=== PATIENT | female | born 2000 | race Caucasian/White ===

== ENCOUNTER → 2018-07-24 | Outpatient (CLI) | payer OTHER ==
--- NOTE | 2018-07-24 10:31 | US ---
EXAMINATION TYPE: Transabdominal DATE OF EXAM: 12/09/17 COMPARISON: NONE CLINICAL HISTORY: Z36 Confirm Dates. G2, P1 positive beta-hCG test. EXAM PERFORMED: Transabdominal (TA) EXAM MEASUREMENTS: GESTATIONAL AGE / DATING Physician Established: Not yet established Dates by LMP: (8 weeks/6 days) EDC: 02/27/2019 Dates by First Scan: No previous this is first scan Dates by Current Scan for: ( 8 weeks/3 days) EDC: 03/02/2019 MATERNAL ANATOMY Uterus: 11.4 x 7.4 x 6.2cm Right Ovary: not seen Left Ovary: 2.8 x 2.3 x 2.1cm Post CDS / Adnexa: wnl Presence of free fluid: no Presence of corpus luteal cyst: not seen Presence of subchorionic bleed: no GESTATION / SURVEY CRL: 1.9 (8. weeks/3 days) Yolk Sac (normal less than 6mm): 3.3mm Heart Rate: 174 bpm Rhythm: Normal IUP: single Date of LMP: 05/23/2018 Beta HcG (if available): NA Single, live IUP, 8 weeks/3 days, EDC: 03/02/2019, [id number]. Single live intrauterine gestation is confirmed as gestational sac, yolk sac, and pole are iden tified. No free fluid is seen in pelvic cul-de-sac. Left ovary is seen. Right ovary is not clearly identified. No suspicious extraovarian adnexal masses are present. IMPRESSION: Single live intrauterine gestation is confirmed, mean crown-rump length is 1.9 cm corresponding to 8 week 3 day old fetus.
[2018-07-24 11:10] LABS: HCT 40.7 % (34.0-46.0); HGB 13.8 gm/dL (11.4-16.0); MCH 29.2 pg (25.0-35.0); MCHC 33.8 g/dL (31.0-37.0); MCV 86.4 fL (80.0-100.0); Mean Platelet Volume 7.3; Platelet Count 298 k/uL (150-450); RBC 4.71 m/uL (3.80-5.40); RDW 13.4 % (11.5-15.5); WBC 11.5 k/uL (4.0-11.0)
[2018-07-24 11:22] LABS: Glucose 77 mg/dL (74-99)
[2018-07-24 17:29] LABS: HIV 1 AB Non-Reactive (Non-Reactive); HIV AB P24 Non-Reactive (Non-Reactive); HIV P24 AG Non-Reactive (Non-Reactive)
== END | disposition home or self-care (01) ==
LOC: RADUSWWP 09:54
PROVIDERS: ATTEND Obstetrics & Gynecology
DX: Z34.81 Encounter for supervision of other normal pregnancy, first trimester (principal); Z3A.08 8 weeks gestation of pregnancy
CPT/HCPCS: 36415; 76801; 82565; 82947; 85027; 86762; 86780; 86850; 86900; 86901; 87340; 87390

== ENCOUNTER 2018-08-26 08:24 | Emergency (ER) | payer OTHER ==
--- NOTE | 2018-08-26 08:54 | ED ---
General Adult HPI - General Chief complaint: Vaginal Bleeding Stated complaint: discharge & back pain/13 wks preg Time Seen by Provider: 08/26/18 08:36 Source: patient, RN notes reviewed Mode of arrival: ambulatory Limitations: no limitations - History of Present Illness Initial comments: Patient's a G2, P1, 18-year-old female presenting to the emergency room approximately 13 weeks by ultrasound, with a chief complaint of seeing some small amount of brown when she wiped after urinating this morning. Patient states that she was concerned that she's not had any bleeding or spotting in or in previous . Patient denies any abdominal discomfort or pain. Patient denies any other complaints or symptoms. Patient denies any recent fever, chills, shortness of breath, chest pain, back pain, nausea or vomiting, numbness or tingling, headaches or visual changes, or any other complaints. - Related Data Previous Rx's Medication Instructions Recorded Nitrofurantoin Monohyd/M-Cryst 100 mg PO Q12HR #14 cap 08/26/18 [Macrobid] Allergies Allergy/AdvReac Type Severity Reaction Status Date / Time cinnamon Allergy Anaphylaxis Verified 08/26/18 09:29 Review of Systems ROS Statement: Those systems with pertinent positive or pertinent negative responses have been documented in the HPI. ROS Other: All systems not noted in ROS Statement are negative. Past Medical History Past Medical History: No Reported History Additional Past Medical History / Comment(s): 07/27/16 patient has had periods of high heart rate for the last 3 months that comes and goes. History of Any Multi-Drug Resistant Organisms: None Reported Past Surgical History: No Surgical Hx Reported Additional Past Surgical History / Comment(s): Plastic surgery repair to upper lip after dog bite Past Anesthesia/Blood Transfusion Reactions: No Reported Reaction Past Psychological History: ADD/ADHD Smoking Status: Former smoker Past Alcohol Use History: None Reported Past Drug Use History: None Reported - Past Family History Father Additional Family Medical History / Comment(s): Heart disease of unknown origin. at 42 years old General Exam - General Exam Comments Initial Comments: General: The patient is awake and alert, in no distress, and does not appear acutely ill. Neck: The neck is supple. Cardiovascular: There is a regular rate and rhythm. No murmur, rub or gallop is appreciated. Respiratory: Lungs are clear to auscultation, respirations are non-labored, breath sounds are equal. No wheezes, stridor, rales, or rhonchi. Gastrointestinal: Abdomen soft nontender. Musculoskeletal: Normal ROM, no tenderness. Neurological: A&O x 3. CN II-XII intact, There are no obvious motor or sensory deficits. Coordination appears grossly intact. Speech is normal. Skin: Skin is warm and dry and no rashes or lesions are noted. Psychiatric: Cooperative, appropriate mood & affect, normal judgment. Limitations: no limitations Course Vital Signs 08/26/18 08:31 Temperature 98.1 F Pulse Rate 90 Respiratory 16 Rate Blood Pressure 107/74 O2 Sat by Pulse 99 Oximetry Medical Decision Making - Medical Decision Making Patient reexamined at this time shows no signs of distress. She is resting, appears ultrasound shows single IUP measuring 14 weeks. No tendon, palpitations. Patient's labs been reviewed are unremarkable. Urinalysis does show evidence for infection. Patient's vitals are stable. No fever. Will be discharged home started on antibiotics. She is advised on the CERTIFIED CODER over the next 2 days. Advised return for any fever, increase or worsening symptoms. - Lab Data Result diagrams: 08/26/18 09:10 08/26/18 09:10 Lab Results 08/26/18 08/26/18 08/26/18 Range/Units 09:10 09:10 09:10 WBC 11.2 H (4.0-11.0) k/uL RBC 4.41 (3.80-5.40) m/uL Hgb 13.1 (11.4-16.0) gm/dL Hct 37.6 (34.0-46.0) % MCV 85.3 (80.0-100.0) fL MCH 29.6 (25.0-35.0) pg MCHC 34.7 (31.0-37.0) g/dL RDW 13.4 (11.5-15.5) % Plt Count 266 (150-450) k/uL Neutrophils % 67 % Lymphocytes % 27 % Monocytes % 4 % Eosinophils % 1 % Basophils % 0 % Neutrophils # 7.5 (1.3-7.7) k/uL Lymphocytes # 3.0 (1.0-4.8) k/uL Monocytes # 0.4 (0-1.0) k/uL Eosinophils # 0.1 (0-0.7) k/uL Basophils # 0.0 (0-0.2) k/uL Sodium 139 (137-145) mmol/L Potassium 4.1 (3.5-5.1) mmol/L Chloride 110 H (98-107) mmol/L Carbon Dioxide 21 L (22-30) mmol/L Anion Gap 8 mmol/L BUN 6 L (7-17) mg/dL Creatinine 0.41 L (0.52-1.04) mg/dL Est GFR (CKD-EPI)AfAm >90 (>60 ml/min/1.73 sqM) Est GFR (CKD-EPI)NonAf >90 (>60 ml/min/1.73 sqM) Glucose 77 (74-99) mg/dL Calcium 9.4 (8.4-10.2) mg/dL Total Bilirubin 0.3 (0.2-1.3) mg/dL AST 18 (14-36) U/L ALT 25 (9-52) U/L Alkaline Phosphatase 58 (38-126) U/L Total Protein 6.9 (6.3-8.2) g/dL Albumin 3.7 (3.5-5.0) g/dL Urine Color Urine Appearance (Clear) Urine pH (5.0-8.0) Ur Specific Wise (1.001-1.035) Urine Protein (Negative) Urine Glucose (UA) (Negative) Urine Ketones (Negative) Urine Blood (Negative) Urine Nitrite (Negative) Urine Bilirubin (Negative) Urine Urobilinogen (<2.0) mg/dL Ur Leukocyte Esterase (Negative) Urine RBC (0-5) /hpf Urine WBC (0-5) /hpf Urine WBC Clumps (None) /hpf Ur Squamous Epith Cells (0-4) /hpf Amorphous Sediment (None) /hpf Urine Bacteria (None) /hpf Urine Mucus (None) /hpf Blood Type AB Positive Blood Type Recheck No 08/26/18 Range/Units 09:10 WBC (4.0-11.0) k/uL RBC (3.80-5.40) m/uL Hgb (11.4-16.0) gm/dL Hct (34.0-46.0) % MCV (80.0-100.0) fL MCH (25.0-35.0) pg MCHC (31.0-37.0) g/dL RDW (11.5-15.5) % Plt Count (150-450) k/uL Neutrophils % % Lymphocytes % % Monocytes % % Eosinophils % % Basophils % % Neutrophils # (1.3-7.7) k/uL Lymphocytes # (1.0-4.8) k/uL Monocytes # (0-1.0) k/uL Eosinophils # (0-0.7) k/uL Basophils # (0-0.2) k/uL Sodium (137-145) mmol/L Potassium (3.5-5.1) mmol/L Chloride (98-107) mmol/L Carbon Dioxide (22-30) mmol/L Anion Gap mmol/L BUN (7-17) mg/dL Creatinine (0.52-1.04) mg/dL Est GFR (CKD-EPI)AfAm (>60 ml/min/1.73 sqM) Est GFR (CKD-EPI)NonAf (>60 ml/min/1.73 sqM) Glucose (74-99) mg/dL Calcium (8.4-10.2) mg/dL Total Bilirubin (0.2-1.3) mg/dL AST (14-36) U/L ALT (9-52) U/L Alkaline Phosphatase (38-126) U/L Total Protein (6.3-8.2) g/dL Albumin (3.5-5.0) g/dL Urine Color Yellow Urine Appearance Cloudy H (Clear) Urine pH 6.5 (5.0-8.0) Ur Specific Wise 1.016 (1.001-1.035) Urine Protein Trace H (Negative) Urine Glucose (UA) Negative (Negative) Urine Ketones Trace H (Negative) Urine Blood Moderate H (Negative) Urine Nitrite Negative (Negative) Urine Bilirubin Negative (Negative) Urine Urobilinogen <2.0 (<2.0) mg/dL Ur Leukocyte Esterase Large H (Negative) Urine RBC 16 H (0-5) /hpf Urine WBC 55 H (0-5) /hpf Urine WBC Clumps Few H (None) /hpf Ur Squamous Epith Cells 23 H (0-4) /hpf Amorphous Sediment Occasional H (None) /hpf Urine Bacteria Occasional H (None) /hpf Urine Mucus Rare H (None) /hpf Blood Type Blood Type Recheck Disposition Clinical Impression: UTI (urinary tract infection), Disposition: HOME SELF-CARE Condition: Good Instructions: Urinary Tract Infection in Women (ED) Additional Instructions: Please use medication as discussed. Please follow-up with CERTIFIED CODER/family doctor in the next 2 days. Please return to emergency room if the symptoms increase or worsen or for any other concerns. Prescriptions: Nitrofurantoin Monohyd/M-Cryst [Macrobid] 100 mg PO Q12HR #14 cap Is patient prescribed a controlled substance at d/c from ED?: No Referrals: None,Stated [Primary Care Provider] - 1-2 days Time of Disposition: 10:39
[2018-08-26 09:31] LABS: Basophils % (A) 0 %; Eosinophils # (A) 0.1 k/uL (0-0.7); Eosinophils % (A) 1 %; HCT 37.6 % (34.0-46.0); HGB 13.1 gm/dL (11.4-16.0); Lymphocytes % (A) 27 %; MCH 29.6 pg (25.0-35.0); MCHC 34.7 g/dL (31.0-37.0); MCV 85.3 fL (80.0-100.0); Mean Platelet Volume 7.7; Monocytes # (A) 0.4 k/uL (0-1.0); Monocytes % (A) 4 %; Neutrophils # (A) 7.5 k/uL (1.3-7.7); Neutrophils % (A) 67 %; Platelet Count 266 k/uL (150-450); RBC 4.41 m/uL (3.80-5.40); RDW 13.4 % (11.5-15.5); WBC 11.2 k/uL (4.0-11.0)
[2018-08-26 09:38] LABS: ALT 25 U/L (9-52); AST 18 U/L (14-36); Albumin 3.7 g/dL (3.5-5.0); Alkaline Phosphatase 58 U/L (38-126); Anion Gap 8 mmol/L; Blood Urea Nitrogen 6 mg/dL (7-17); Calcium 9.4 mg/dL (8.4-10.2); Carbon Dioxide 21 mmol/L (22-30); Chloride 110 mmol/L (98-107); Glucose 77 mg/dL (74-99); Potassium 4.1 mmol/L (3.5-5.1); Sodium 139 mmol/L (137-145); Total Bilirubin 0.3 mg/dL (0.2-1.3); Total Protein 6.9 g/dL (6.3-8.2)
[2018-08-26 09:44] LABS: Amorphous Sediment,Urine Occasional /hpf; Appearance,Urine Cloudy (Clear); Bacteria,Urine Occasional /hpf; Bilirubin,Urine Negative (Negative); Blood,Urine Moderate (Negative); Color,Urine Yellow; Glucose,Urine (UA) Negative (Negative); Ketones,Urine Trace (Negative); Leukocyte Esterase,Urine Large (Negative); Mucus,Urine Rare /hpf; Nitrite,Urine Negative (Negative); PH, Urine 6.5 (5.0-8.0); Protein,Urine Trace (Negative); RBC,Urine 16 /hpf (0-5); Specific Gravity,Urine 1.016 (1.001-1.035); Squamous Epithelial Cell,Urine 23 /hpf (0-4); Urobilinogen,Urine <2.0 mg/dL (<2.0)
--- NOTE | 2018-08-26 10:25 | US ---
EXAMINATION TYPE: Transabdominal DATE OF EXAM: 12/09/17 COMPARISON: Us 07/24/2018 CLINICAL HISTORY: Pain. Spotting EXAM PERFORMED: Transabdominal (TA) EXAM MEASUREMENTS: GESTATIONAL AGE / DATING Physician Established: (13 weeks/4 days) EDC: 02/27/2019 Dates by LMP: (13 weeks/4 days) EDC: 02/27/2019 Dates by First Scan: (13 weeks/1 days) EDC: 03/02/2019 Dates by Current Scan for: (14 weeks/0 days) EDC: 02/24/2019 MATERNAL ANATOMY Uterus: 15.0 x 5.8 x 9.8 cm Right Ovary: 2.1 x 1.6 x 2.0 cm Left Ovary: 2.6 x 1.8 x 1.9 cm Post CDS / Adnexa: wnl Presence of free fluid: No Presence of corpus luteal cyst: No Presence of subchorionic bleed: No GESTATION / SURVEY CRL: 8.0 cm (14 weeks/0 days) Heart Rate: 160 bpm Rhythm: Normal IUP: Viable IUP Date of LMP: 05/23/2018 Beta HcG (if available): Not available at this time Single live intrauterine gestation is redemonstrated. Satisfactory interval progression noted. No cory e fluid seen in pelvic cul-de-sac. Both ovaries are seen. No suspicious extraovarian adnexal masses are noted. IMPRESSION: Single live intrauterine gestation is redemonstrated, mean crown-rump length is 8.0 cm corresponding to 14 weeks 0 day old fetus. No ultrasound evidence for complication.
[2018-08-26 10:52] LABS: HCG,Quantitative Serum 96028.9 mIU/mL
[2018-08-26 11:10] VITALS: BP 117/70; PULSE 86; RESP 17; TEMP 98.4
== END 2018-08-26 11:11 | disposition home or self-care (01) ==
LOC: EC 08:24
DX: O23.41 Unspecified infection of urinary tract in pregnancy, first trimester (principal); Z3A.14 14 weeks gestation of pregnancy; Z87.891 Personal history of nicotine dependence; Z91.018 Allergy to other foods
CPT/HCPCS: 36415; 76801; 80053; 81001; 84702; 85025; 86900; 86901; 87086; 99284

== ENCOUNTER → 2018-11-10 | Outpatient (CLI) | payer OTHER | LOC: LABWHC1 08:35 | PROVIDERS: ATTEND Obstetrics & Gynecology | DX: Z34.82 Encounter for supervision of other normal pregnancy, second trimester (principal); Z3A.00 Weeks of gestation of pregnancy not specified | CPT/HCPCS: 36415; 82950 ==

== ENCOUNTER 2018-12-20 14:23 | Outpatient (CLI) | payer OTHER ==
[2018-12-20 15:09] VITALS: BP 124/65; PULSE 108; RESP 16; TEMP 98.8
--- NOTE | 2018-12-21 06:17 | P.MSEPDOC ---
Presenting Problems - Arrival Data Date of Arrival on Unit: 12/20/18 Time of Arrival on Unit: 14:38 Mode of Transport: Ambulatory - Complaint OB-Reason for Admission/Chief Complaint: Other Comment: pt arrived c/o pressure and discomfort in the vaginal area Medical History - Information : 2 Para: 1 Term: 1 : 0 Abortions: Spontaneous or Elective: 0 Number of Living Children: 1 - Gestational Age Gestational Age by YVONNE (wks/days): 30 Weeks and 1 Days Review of Systems - Review of Systems Constitutional: No problems Breast: No problems ENT: No problems Cardiovascular: No problems Respiratory: No problems Gastrointestinal: No problems Genitourinary: No problems Musculoskeletal: No problems Neurological: No problems Skin: No problems Vital Signs - Temperature Temperature: 98.8 F Temperature Source: Oral - Pulse Right Brachial Pulse Rate: 108 Pulse Assessment Method: Automatic Cuff - Respirations Respiratory Rate: 16 Oxygen Delivery Method: Room Air O2 Sat by Pulse Oximetry: 97 - Blood Pressure Right Arm Blood Pressure: 124/65 Blood Pressure Mean: 84 Blood Pressure Source: Automatic Cuff Medical Screen Scoring (Post) - Cervical Exam Dilation: 0 cm = 0 Effacement: Exam Deferred Membranes: Intact - Uterine Contractions Frequency: N/A Duration: N/A Intensity: N/A - Maternal Vital Signs Maternal Temperature: N/A Maternal Blood Pressure: N/A Signs of Preeclampsia: N/A Maternal Respirations: N/A - Pain Assessment Pain Location and Character: Perineal Pain Scale Used: Numeric (1 - 10) Pain Intensity: 7 Pain Management Goal: 2 Pain Description: Pressure Pain Radiation Location: n/a Pain Frequency: Constant Pain Behavior: Vocalization Pain Aggravating Factors: Position, Walking Non-Pharmacological Interventions: Position/Reposition - Maternal Trauma Maternal Trauma: N/A - Assessment Heart Rate: 140 Heart Rate - NICHD Category: Category I (Normal) = 0 NST: Reactive Position: N/A Station: N/A - Total Score Total Score (Post): 0 - Post Treatment Level of Risk Post Treatment Level of Risk: Low (0-5) Physician Notification (Post) - Physician Notified Physician Notified Date: 12/20/18 Physician Notified Time: 14:04 Spoke With: dr pizarro New Order Received: Yes - Notification Comment Comment: may discharge to home Disposition - Disposition OB Disposition: Discharge to home Discharge Date: 12/20/18 Discharge Time: 16:05 I agree with the RN Medical Screening Exam: Yes Risk & Benefit of care provided described in d/c instruction: Yes Diagnosis: PELVIC AND PERINEAL PAIN
== END 2018-12-20 16:15 | disposition home or self-care (01) ==
LOC: FBPOP 14:23
PROVIDERS: ATTEND Obstetrics & Gynecology
DX: O99.89 Other specified diseases and conditions complicating pregnancy, childbirth and the puerperium (principal); R10.2 Pelvic and perineal pain; Z3A.30 30 weeks gestation of pregnancy
CPT/HCPCS: 59025; G0463; 99213

== ENCOUNTER → 2019-01-29 | Outpatient (CLI) | payer OTHER ==
[2019-01-29 01:27] VITALS: BP 133/64; PULSE 94; RESP 16; TEMP 96.8
--- NOTE | 2019-02-04 08:27 | P.MSEPDOC ---
Presenting Problems - Arrival Data Date of Arrival on Unit: 01/29/19 Time of Arrival on Unit: 00:15 Mode of Transport: Wheelchair - Complaint OB-Reason for Admission/Chief Complaint: Possible Onset of Labor Comment: contractions for 2 hours Medical History - Information : 2 Para: 1 Term: 1 : 0 Abortions: Spontaneous or Elective: 0 Number of Living Children: 1 - Gestational Age Gestational Age by YVONNE (wks/days): 35 Weeks and 6 Days Review of Systems - Review of Systems Constitutional: No problems Breast: No problems ENT: No problems Cardiovascular: No problems Respiratory: No problems Gastrointestinal: No problems Genitourinary: No problems Musculoskeletal: No problems Neurological: No problems Skin: No problems Vital Signs - Temperature Temperature: 96.8 F Temperature Source: Oral - Pulse Right Brachial Pulse Rate: 94 Pulse Assessment Method: Automatic Cuff - Respirations Respiratory Rate: 16 Oxygen Delivery Method: Room Air O2 Sat by Pulse Oximetry: 98 - Blood Pressure Right Arm Blood Pressure: 133/64 Blood Pressure Mean: 87 Blood Pressure Source: Automatic Cuff Medical Screen Scoring (Pre) - Cervical Exam Dilation: 1-3 cm = 1 Membranes: Intact - Uterine Contractions Frequency: > 5 minutes apart = 1 Duration: N/A Intensity: N/A - Maternal Vital Signs Maternal Temperature: N/A - Assessment Baseline FHR: 135 Heart Rate - NICHD Category: Category I (Normal) = 0 NST: Reactive Position: N/A Station: N/A - Total Score Total Score (Pre): 2 - Level of Risk Level of Risk: Low (0-5) Physician Notification (Pre) - Physician Notified Physician Notified Date: 01/29/19 Physician Notified Time: 00:54 Spoke With: Deric Jones Order Received: Yes (january discharge to home) Medical Screen Scoring (Post) - Post Treatment Level of Risk Post Treatment Level of Risk: Low (0-5) Physician Notification (Post) - Notification Comment Comment: Discharge to home with instruction Disposition - Disposition OB Disposition: Discharge to home, Written follow up instructions reviewed Discharge Date: 01/29/19 Discharge Time: 01:00 I agree with the RN Medical Screening Exam: Yes Risk & Benefit of care provided described in d/c instruction: Yes Diagnosis: FALSE LABOR BEFORE 37 COMPLETED WEEKS OF GEST, THIRD TRI
== END ==
LOC: FBPOP 00:18
PROVIDERS: ATTEND Obstetrics & Gynecology
DX: O47.03 False labor before 37 completed weeks of gestation, third trimester (principal); Z3A.35 35 weeks gestation of pregnancy
CPT/HCPCS: 59025; G0463; 99213

== ENCOUNTER 2019-02-22 06:07 | Inpatient (IN) | payer OTHER ==
--- NOTE | 2019-02-21 20:46 | P.HPOB ---
History of Present Illness H&P Date: 02/21/19 Chief Complaint: Induction of labor This is a 18-year-old female 2 para 1 with an estimated date of confinement of 02/27/2019, estimated gestational age of 39-2/7 weeks, who presents to labor and delivery for induction of labor. She admits to good movement. She has been experiencing irregular but strong contractions. She also complains of pelvic pressure. course has been essentially uncomplicated. labs: GC/chlamydia-negative Hepatitis B surface antigen-nonreactive Rubella-immune Syphilis antibody-negative nonreactive HIV-nonreactive Random glucose-77 Hemoglobin-13.8 Blood type-a B+ Antibody screen-negative Obstetrical ultrasound-normal anatomy One hour Glucola-110 Group B streptococcus-negative Obstetrical history: . History of 1 vaginal delivery at term. Gynecologic history: No history of sexual transmitted diseases. Social history: She is single. She is unemployed. Review of Systems Constitutional: Denies chills, Denies fever Eyes: denies blurred vision, denies pain Ears, nose, mouth and throat: Denies headache, Denies sore throat Cardiovascular: Denies chest pain, Denies shortness of breath Respiratory: Denies cough Gastrointestinal: Reports abdominal pain (Irregular contractions) Genitourinary: Reports pelvic pain, Reports Integumentary: Denies pruritus, Denies rash Neurological: Denies numbness, Denies weakness Psychiatric: Denies anxiety, Denies depression Past Medical History Past Medical History: No Reported History History of Any Multi-Drug Resistant Organisms: None Reported Past Surgical History: No Surgical Hx Reported Additional Past Surgical History / Comment(s): Plastic surgery repair to upper lip after dog bite Past Anesthesia/Blood Transfusion Reactions: No Reported Reaction Past Psychological History: No Psychological Hx Reported Smoking Status: Never smoker Past Alcohol Use History: None Reported Past Drug Use History: None Reported - Past Family History Father Additional Family Medical History / Comment(s): Heart disease of unknown origin. at 42 years old Medications and Allergies Home Medications Medication Instructions Recorded Confirmed Type No Known Home Medications 12/20/18 01/29/19 History Allergies Allergy/AdvReac Type Severity Reaction Status Date / Time cinnamon Allergy Anaphylaxis Verified 01/29/19 00:31 Exam Osteopathic Statement: *. No significant issues noted on an osteopathic structural exam other than those noted in the History and Physical/Consult. HEENT: Within normal limits Heart: Regular rate and rhythm Lungs: Clear to auscultation bilaterally Abdomen: Cervix: 3 cm/60%/-2 station heart tones: 140s by Doppler Extremities: Negative Homans Assessment and Plan (1) with 39 completed weeks gestation Status: Acute Code(s): Z3A.39 - 39 WEEKS GESTATION OF SNOMED Code(s): 54782453 Plan: Proceed with oxytocin induction of labor. Expectant management. Epidural anesthesia if desired.
[2019-02-22] MEDS ORDERED: CARBOPROST TROMETHAMINE 250 MCG/ML 1 ML AMP IM PRN (06:33)
[2019-02-22] MEDS ORDERED: METHYLERGONOVINE 0.2 MG/ML 1 ML AMP IM PRN (06:33)
[2019-02-22] MEDS ORDERED: LIDOCAINE 1% 20 ML VIAL (10MG/ML) FOR IV START INTRADERMA PRN (06:33)
[2019-02-22] MEDS ORDERED: OXYTOCIN 10 UNIT/ML 1 ML VIAL IM PRN (06:33)
[2019-02-22] MEDS ORDERED: OXYTOCIN 30 UNITS/500 ML NS 30 UNIT in SALINE 1 500ML.BAG IV SCH (06:33)
[2019-02-22] MEDS ORDERED: TERBUTALINE 1 MG/ML VIAL SQ PRN (06:33)
[2019-02-22] MEDS ORDERED: LIDOCAINE 0.5% (PF) 5 MG/ML (50 ML SDV) SQ PRN (06:33)
[2019-02-22 07:24] LABS: Basophils % (A) 0 %; Eosinophils % (A) 0 %; HCT 30.8 % (34.0-46.0); HGB 9.9 gm/dL (11.4-16.0); Lymphocytes # (A) 2.3 k/uL (1.0-4.8); Lymphocytes % (A) 24 %; MCH 26.5 pg (25.0-35.0); MCHC 32.1 g/dL (31.0-37.0); MCV 82.6 fL (80.0-100.0); Mean Platelet Volume 8.3; Monocytes # (A) 0.4 k/uL (0-1.0); Monocytes % (A) 5 %; Neutrophils # (A) 6.7 k/uL (1.3-7.7); Neutrophils % (A) 69 %; Platelet Count 255 k/uL (150-450); RBC 3.73 m/uL (3.80-5.40); RDW 14.7 % (11.5-15.5); WBC 9.7 k/uL (4.0-11.0)
[2019-02-22 07:37] VITALS: BMI 43.5
[2019-02-22] MEDS: LACTATED RINGERS 1,000 ML IV SCH ×3 (07:42→13:10)
[2019-02-22] MEDS ORDERED: BUTORPHANOL 1 MG/ML 1 ML VIAL IV PRN (07:43)
[2019-02-22] MEDS ORDERED: ROPIVACAINE 100 MG, fentaNYL (PF) 200 MCG in SODIUM CHLORIDE 0.9% 76 ML EPIDURAL ONE (13:02)
--- NOTE | 2019-02-22 19:13 | P.PROBDLV ---
Vaginal Delivery Note - . Vaginal Delivery Note: The patient progressed to complete dilation after oxytocin induction of labor and artificial rupture membranes with clear fluid noted. She did receive epidural anesthesia. Once reaching complete dilation, she began pushing. Infant's head came to a crown. With one further push, the infant's head delivered across the perineum followed by the anterior shoulder and the remainder the body. was placed on mother's abdomen. Brisk cry was noted immediately. Cord was clamped and cut. was taken to warmer for evaluation. A viable male infant is noted with scores of 9 at 1 minute and 9 at 5 minutes and weight was 8 lbs. 9 oz. Placenta delivered shortly thereafter, intact, with a three-vessel cord. Uterus contracted fairly well after oxytocin was given and uterine massage was carried out. A few clots were manually expressed and this did help the uterus to firm. Inspection of the perineum revealed a second-degree perineal laceration. This area was anesthetized with 1% lidocaine and then sutured with 3-0 and 2-0 Vicryl suture in the usual multilayer fashion. Both mother and are in stable condition. Estimated blood loss is approximately 200 mL's.
[2019-02-22] MEDS ORDERED: BENZOCAINE/MENTHOL SPRAY 1 GM/SPRAY AEROSOL TOPICAL PRN (19:16)
[2019-02-22] MEDS ORDERED: ZOLPIDEM 5 MG TAB PO PRN (19:16)
[2019-02-22] MEDS ORDERED: diphenhydrAMINE 50 MG/ML 1 ML VIAL IVP PRN ×2 (19:16)
[2019-02-22] MEDS ORDERED: LANOLIN CREAM 5 GM TUBE TOPICAL PRN (19:16)
[2019-02-22] MEDS ORDERED: ACETAMINOPHEN TAB 325 MG TAB PO PRN (19:16)
[2019-02-22] MEDS ORDERED: SIMETHICONE 80 MG CHEWABLE PO PRN (19:16)
[2019-02-22] MEDS ORDERED: HYDROCORTISONE 2.5% RECTAL CREAM 30 GM TUBE RECTAL PRN (19:16)
[2019-02-22] MEDS ORDERED: diphenhydrAMINE 25 MG CAP PO PRN (19:16)
[2019-02-22] MEDS ORDERED: diphenhydrAMINE 50 MG CAP PO PRN (19:16)
[2019-02-22] MEDS ORDERED: WITCH HAZEL 1 EACH MED..PAD TOPICAL PRN (19:16)
[2019-02-22] MEDS ORDERED: OXYTOCIN 20 UNITS/1000 ML NS 1,000 ML IV SCH (19:30)
[2019-02-22] MEDS: IBUPROFEN 600 MG TAB PO PRN (19:31)
[2019-02-22] MEDS: SENNOSIDES-DOCUSATE SODIUM 1 EACH TAB PO SCH (21:03)
[2019-02-22] MEDS: HYDROcodone/APAP 5-325MG 1 EACH TAB PO PRN (21:18)
[2019-02-23] MEDS: HYDROcodone/APAP 5-325MG 1 EACH TAB PO PRN (07:25)
--- NOTE | 2019-02-23 08:27 | P.DS ---
Providers Date of admission: 02/22/19 06:07 Expected date of discharge: 02/23/19 Attending physician: Hui Rivera Primary care physician: Stated None - Discharge Diagnosis(es) (1) with 39 completed weeks gestation Current Visit: No Status: Acute Hospital Course: This is a 18-year-old female 2 para 1 at 39-2/7 weeks who presented for induction of labor. She underwent oxytocin induction of labor and delivered vaginally a viable male infant with scores of 9 at 1 minute and 9 at 5 minutes and weight of 8 lbs. 9 oz. Her course has been essentially uncomplicated. Lochia is decreasing. Pain is fairly well controlled. She is breast-feeding. Vital signs are stable. Abdomen is soft with fundus firm and nontender. Extremity show negative Homans. Impression is status post vaginal delivery day #1. Plan is to discharge home today. Routine instructions are given. She will be given a prescription for ibuprofen and a breast pump. She is advised follow-up in the office in 6 weeks for a check. She is advised to call the office if she has any further questions or concerns prior to her appointment time. Procedures: Oxytocin induction of labor Spontaneous vaginal delivery of a viable male on 02/22/2019 Patient Condition at Discharge: Stable Plan - Discharge Summary New Discharge Prescriptions: New Ibuprofen [Motrin] 600 mg PO Q6HR PRN #60 tab PRN Reason: Mild Pain Or Fever >= 100.5 Discharge Medication List Ibuprofen [Motrin] 600 mg PO Q6HR PRN #60 tab 02/23/19 [Rx] Follow up Appointment(s)/Referral(s): Hui Rivera DO [Doctor of Osteopathic Medicine] - 6 Weeks Activity/Diet/Wound Care/Special Instructions: Instructions 1. Do not begin any exercise program for 3 weeks. 2. Do not resume sexual relations for 3 weeks or longer if uncomfortable. 3. You may take tub baths or showers at any time. 4. You may use tampons if desired after 3 weeks. 5. Keep the area of episiotomy (stitches) clean and dry. 6. If you are not nursing, wear a good fitting, supportive bra during the day and limit fluid intake for at least 1 week to prevent breast engorgement. 7. Call the office, [phone], within the next week to make appointment for your 6 week checkup if it has not already been made. 8. Report any of the following occurrences to the doctor promptly: a. Heavy, excessive bleeding b. Chills, fever c. Burning or frequency of urination d. Pain or redness and breasts if nursing e. Increasing pain or swelling in episiotomy (stitches). In addition to the above instructions, the following additional should be followed: 1. No heavy lifting or straining (exercising) until after 6 week checkup. 2. Keep abdominal incision clean and dry: You may wear a dressing if more comfortable. 3. Make office appointment for 10 days after going home or as instructed by her doctor. Discharge Disposition: HOME SELF-CARE
[2019-02-23 10:30] LABS: Basophils % (A) 0 %; Eosinophils % (A) 0 %; HCT 25.9 % (34.0-46.0); Hypochromasia Moderate; Lymphocytes # (A) 1.9 k/uL (1.0-4.8); Lymphocytes % (A) 13 %; MCH 27.1 pg (25.0-35.0); MCHC 32.6 g/dL (31.0-37.0); MCV 83.3 fL (80.0-100.0); Mean Platelet Volume 8.9; Monocytes # (A) 0.8 k/uL (0-1.0); Monocytes % (A) 5 %; Neutrophils # (A) 11.5 k/uL (1.3-7.7); Neutrophils % (A) 80 %; Platelet Count 221 k/uL (150-450); RBC 3.11 m/uL (3.80-5.40); RDW 15.1 % (11.5-15.5); WBC 14.4 k/uL (4.0-11.0)
[2019-02-23 10:35] LABS: HGB 8.4 gm/dL (11.4-16.0)
[2019-02-23] MEDS: SENNOSIDES-DOCUSATE SODIUM 1 EACH TAB PO SCH ×2 (14:35→20:15)
[2019-02-23] MEDS: IBUPROFEN 600 MG TAB PO PRN (15:57)
[2019-02-23 16:52] VITALS: RESP 16
[2019-02-24 01:42] VITALS: TEMP 97.8
[2019-02-24] MEDS: SENNOSIDES-DOCUSATE SODIUM 1 EACH TAB PO SCH (08:02)
[2019-02-24 08:05] VITALS: BP 111/66; PULSE 82
[2019-02-24] MEDS: IBUPROFEN 600 MG TAB PO PRN (09:54)
== END 2019-02-24 10:30 | disposition home or self-care (01) | DRG 807 ==
LOC: 4FBP 06:07
PROVIDERS: ADMIT Obstetrics & Gynecology; ATTEND Obstetrics & Gynecology
PROC: 10E0XZZ Delivery of Products of Conception, External Approach (ICD-10-PCS; principal; 2019-02-22)
PROC: 0KQM0ZZ Repair Perineum Muscle, Open Approach (ICD-10-PCS; 2019-02-22)
PROC: 10907ZC Drainage of Amniotic Fluid, Therapeutic from Products of Conception, Via Natural or Artificial Opening (ICD-10-PCS; 2019-02-22)
PROC: 3E033VJ Introduction of Other Hormone into Peripheral Vein, Percutaneous Approach (ICD-10-PCS; 2019-02-22)
DX: O70.1 Second degree perineal laceration during delivery (principal); Z37.0 Single live birth; Z3A.39 39 weeks gestation of pregnancy; Z88.8 Allergy status to other drugs, medicaments and biological substances
CPT/HCPCS: 85025; 86850; 86900; 86901

== ENCOUNTER 2019-11-12 06:50 | Emergency (ER) | payer OTHER ==
[2019-11-12] MEDS ORDERED: ACETAMINOPHEN TAB 500 MG TAB PO STA (06:59)
[2019-11-12] MEDS ORDERED: IBUPROFEN 600 MG TAB PO STA (06:59)
--- NOTE | 2019-11-12 07:10 | ED ---
General Adult HPI - General Chief complaint: Upper Respiratory Infection Stated complaint: Cough/Headache Time Seen by Provider: 11/12/19 07:00 Source: patient, RN notes reviewed, old records reviewed Mode of arrival: ambulatory Limitations: no limitations - History of Present Illness Initial comments: Patient is a 19-year-old female who presents emergency room today with cough fever and congestion for the past day. Patient has had a fever 101 today. She has some Tylenol at 1 AM and some Sudafed this morning prior to arrival. She was exposed and influenza by her mother. - Related Data Home Medications Medication Instructions Recorded Confirmed Acetaminophen [Tylenol] 1,000 mg PO Q4-6H PRN 11/12/19 11/12/19 Fluticasone Nasal [place] [Flonase 2 spr EA NOSTRIL DAILY PRN 11/12/19 11/12/19 Nasal [place]] Previous Rx's Medication Instructions Recorded Ibuprofen [Motrin] 600 mg PO Q8HR PRN #30 tab 11/12/19 Oseltamivir [Tamiflu] 75 mg PO Q12HR #10 cap 11/12/19 Allergies Allergy/AdvReac Type Severity Reaction Status Date / Time cinnamon Allergy Anaphylaxis Verified 11/12/19 07:45 Review of Systems ROS Statement: Those systems with pertinent positive or pertinent negative responses have been documented in the HPI. ROS Other: All systems not noted in ROS Statement are negative. Past Medical History Past Medical History: No Reported History History of Any Multi-Drug Resistant Organisms: None Reported Past Surgical History: No Surgical Hx Reported Additional Past Surgical History / Comment(s): Plastic surgery repair to upper lip after dog bite Past Anesthesia/Blood Transfusion Reactions: No Reported Reaction Past Psychological History: No Psychological Hx Reported Smoking Status: Current every day smoker Past Alcohol Use History: None Reported Past Drug Use History: None Reported - Past Family History Father History Unknown: Yes Additional Family Medical History / Comment(s): Heart disease of unknown origin. at 42 years old Mother Family Medical History: Diabetes Mellitus General Exam - General Exam Comments Initial Comments: 19-year-old female. Limitations: no limitations General appearance: alert, in no apparent distress Head exam: Present: atraumatic, normocephalic, normal inspection Eye exam: Present: normal appearance ENT exam: Present: normal exam, mucous membranes moist Neck exam: Present: normal inspection. Absent: tenderness, meningismus, lymphadenopathy Respiratory exam: Present: normal lung sounds bilaterally. Absent: respiratory distress, wheezes, rales, rhonchi, stridor Cardiovascular Exam: Present: regular rate, normal rhythm, normal heart sounds. Absent: systolic murmur, diastolic murmur, rubs, gallop, clicks GI/Abdominal exam: Present: soft, normal bowel sounds. Absent: distended, tenderness, guarding, rebound, rigid Extremities exam: Present: normal inspection, full ROM, normal capillary refill. Absent: tenderness, pedal edema, joint swelling, calf tenderness Back exam: Present: normal inspection Neurological exam: Present: alert, oriented X3, CN II-XII intact Psychiatric exam: Present: normal affect, normal mood Skin exam: Present: warm, dry, intact, normal color. Absent: rash Course Vital Signs 11/12/19 06:57 Temperature 100.6 F H Pulse Rate 110 H Respiratory 22 Rate Blood Pressure 130/83 O2 Sat by Pulse 96 Oximetry Medical Decision Making - Medical Decision Making 19-year-old female presents emergency department today for evaluation for concern for fever cough congestion. Patient is positive for influenza A. Patient's lungs are clear. She is given Motrin Tylenol. She appears in no acute distress. Patient will be discharged at this time with a prescription for Tamiflu. Discussed supportive measures. All questions were answered return parameters were discussed. - Lab Data Lab Results 11/12/19 Range/Units 07:03 Influenza Type A RNA Detected H (Not Detectd) Influenza Type B (PCR) Not Detected (Not Detectd) Disposition Clinical Impression: Influenza Disposition: HOME SELF-CARE Condition: Good Instructions (If sedation given, give patient instructions): Influenza (ED) Additional Instructions: Please use medication as discussed. Alternate between Motrin and Tylenol every 3-4 hours. Encourage fluid intake. Please follow up with family doctor if symptoms have not improved over the next two days. Please return to the emergency room if your symptoms increase or worsen or for any other concerns. Prescriptions: Ibuprofen [Motrin] 600 mg PO Q8HR PRN #30 tab PRN Reason: Pain Oseltamivir [Tamiflu] 75 mg PO Q12HR #10 cap Is patient prescribed a controlled substance at d/c from ED?: No Referrals: None,Stated [Primary Care Provider] - 1-2 days Time of Disposition: 07:48
[2019-11-12 08:06] VITALS: BP 136/76; PULSE 99; RESP 18; TEMP 98.7
== END 2019-11-12 08:06 | disposition home or self-care (01) ==
LOC: EC 06:50
DX: J10.1 Influenza due to other identified influenza virus with other respiratory manifestations (principal); F17.200 Nicotine dependence, unspecified, uncomplicated; Z91.018 Allergy to other foods
CPT/HCPCS: 87502; 99284

== ENCOUNTER → 2020-06-29 | Outpatient (CLI) | payer OTHER ==
--- NOTE | 2020-06-29 15:45 | US ---
EXAMINATION TYPE: US thyroid st tissue head/neck DATE OF EXAM: 06/29/2020 COMPARISON: NONE CLINICAL HISTORY: R22.0 swelling. Edema GLAND SIZE: Right Lobe: 5.7 x 1.5 x 1.6 cm Overall Parenchyma: homogenous Left Lobe: 5.4 x 1.2 x 2.0 cm Overall Parenchyma: homogeneous Isthmus Thickness: .4 cm NODULES RIGHT: # of nodules measured on right: 0 LEFT: # of nodules measured on left: 0 ISTHMUS: # of nodules measured in the isthmus: 0 Bilateral neck scanned, no evidence of lymphadenopathy. Homogeneous thyroid measures upper limits of normal in size without patient's nodule. IMPRESSION: As above. Unremarkable study.
== END | disposition home or self-care (01) ==
LOC: RADUSWWP 14:59
PROVIDERS: ATTEND Internal Medicine
DX: R22.0 Localized swelling, mass and lump, head (principal); R22.1 Localized swelling, mass and lump, neck
CPT/HCPCS: 76536

== ENCOUNTER 2020-08-05 12:25 | Emergency (ER) | payer OTHER ==
[2020-08-05 12:31] VITALS: BP 127/86; PULSE 74; RESP 18; TEMP 98.2
--- NOTE | 2020-08-05 13:46 | ED ---
ENT HPI - General Chief complaint: ENT Stated complaint: Sore Throat Time Seen by Provider: 08/05/20 13:06 Source: patient Mode of arrival: ambulatory Limitations: no limitations - History of Present Illness Initial comments: Patient is a 20-year-old female presenting to the emergency Department with complaints of a sore throat since yesterday. Patient states when she clears her throat she gets a little bit of phlegm production and she noticed there was a tiny bit of blood mixed in there. Patient states this happened 2-3 times this morning and she got concerned and side, into the ER. She denies having a fever, chills no cough or shortness of breath. She admits to some mild sinus congestion, postnasal drip. She denies any abdominal pain, no nausea or vomiting. She denies history of asthma. She has no further complaints at this time. Upon arrival to the ER, her vital signs are stable. - Related Data Home Medications Medication Instructions Recorded Confirmed Acetaminophen [Tylenol] 1,000 mg PO Q4-6H PRN 11/12/19 11/12/19 Fluticasone Nasal [place] [Flonase 2 spr EA NOSTRIL DAILY PRN 11/12/19 11/12/19 Nasal [place]] Previous Rx's Medication Instructions Recorded Ibuprofen [Motrin] 600 mg PO Q8HR PRN #30 tab 11/12/19 Oseltamivir [Tamiflu] 75 mg PO Q12HR #10 cap 11/12/19 Allergies Allergy/AdvReac Type Severity Reaction Status Date / Time cinnamon Allergy Anaphylaxis Verified 08/05/20 12:27 Review of Systems ROS Statement: Those systems with pertinent positive or pertinent negative responses have been documented in the HPI. ROS Other: All systems not noted in ROS Statement are negative. Past Medical History Past Medical History: No Reported History History of Any Multi-Drug Resistant Organisms: None Reported Past Surgical History: No Surgical Hx Reported Additional Past Surgical History / Comment(s): Plastic surgery repair to upper lip after dog bite Past Anesthesia/Blood Transfusion Reactions: No Reported Reaction Past Psychological History: No Psychological Hx Reported Smoking Status: Former smoker Past Alcohol Use History: None Reported Past Drug Use History: None Reported - Past Family History Father History Unknown: Yes Additional Family Medical History / Comment(s): Heart disease of unknown origin. at 42 years old Mother Family Medical History: Diabetes Mellitus General Exam - General Exam Comments Initial Comments: GENERAL: Patient is well-developed and well-nourished. Patient is nontoxic and in no acute distress. HEAD: Atraumatic, normocephalic. EYES: Pupils equal round and reactive to light, extraocular movements intact, sclera anicteric, conjunctiva are normal. Eyelids were unremarkable. ENT: TMs normal, nares patent, oropharynx clear without exudates. Moist mucous membranes. NECK: Normal range of motion, supple without lymphadenopathy or JVD. LUNGS: Unlabored respirations. Breath sounds clear to auscultation bilaterally and equal. No wheezes rales or rhonchi. HEART: Regular rate and rhythm without murmurs, rubs or gallops. ABDOMEN: Soft, nontender, normoactive bowel sounds. No guarding, no rebound. No masses appreciated. : Deferred MUSCULOSKELETAL: Normal extremities with adequate strength and normal range of motion, no pitting or edema. No clubbing or cyanosis. NEUROLOGICAL: Patient is alert and oriented x 3. Motor and sensory are also intact. Cranial nerves II through XII grossly intact. Symmetrical smile. Normal speech, normal gait. PSYCH: Normal mood, normal affect. SKIN: Warm, Dry, normal turgor, no rashes or lesions noted. Limitations: no limitations Course Vital Signs 08/05/20 12:27 Temperature 98.2 F Pulse Rate 74 Respiratory 18 Rate Blood Pressure 127/86 O2 Sat by Pulse 100 Oximetry Medical Decision Making - Medical Decision Making Patient is a 20-year-old female here with a sore throat 2 days as well as some mild blood mixed in her phlegm. Her exam is unremarkable, she has no shortness of breath, no cough, no fever. Her vital signs are stable. I did swab patient for strep, this is negative. I discussed patient this is most likely postnasal drip, mild bilateral infection. Recommended Claritin or Zyrtec for the postnasal drip, Tylenol or Motrin for discomfort. She is stable for discharge. Patient is in agreement with this plan and care. She can follow up with her PCP. - Lab Data Lab Results 08/05/20 Range/Units 13:39 Group A Strep Rapid Negative (Negative) Disposition Clinical Impression: Sore throat, Viral illness Disposition: HOME SELF-CARE Condition: Stable Instructions (If sedation given, give patient instructions): Postnasal Drip (DC) Additional Instructions: Please return to the Emergency Department if symptoms worsen or any other concerns. Recommended Claritin or Zyrtec for postnasal drip, increase fluid intake. Follow up with PCP. Is patient prescribed a controlled substance at d/c from ED?: No Referrals: Atul Rizzo MD [Primary Care Provider] - 1-2 days
== END 2020-08-05 14:04 | disposition home or self-care (01) ==
LOC: EC 12:25
DX: J02.9 Acute pharyngitis, unspecified (principal); B34.9 Viral infection, unspecified; Z91.018 Allergy to other foods; Z87.891 Personal history of nicotine dependence
CPT/HCPCS: 87081; 87430; 99283

== ENCOUNTER 2021-02-17 02:06 | Emergency (ER) | payer OTHER ==
[2021-02-17] MEDS ORDERED: ONDANSETRON 4 MG/2 ML VIAL IVP STA (02:52)
[2021-02-17] MEDS ORDERED: KETOROLAC 15 MG/ML 1 ML VIAL IVP STA (02:52)
[2021-02-17] MEDS ORDERED: SODIUM CHLORIDE 0.9% 1,000 ML IV ONE (02:59)
[2021-02-17 03:30] LABS: Appearance,Urine Clear (Clear); Bacteria,Urine Rare /hpf; Bilirubin,Urine Negative (Negative); Blood,Urine Negative (Negative); Color,Urine Yellow; Glucose,Urine (UA) Negative (Negative); Ketones,Urine 4+ (Negative); Leukocyte Esterase,Urine Large (Negative); Mucus,Urine Few /hpf; Nitrite,Urine Negative (Negative); Protein,Urine Trace (Negative); RBC,Urine 1 /hpf (0-5); Specific Gravity,Urine 1.033 (1.001-1.035); Squamous Epithelial Cell,Urine 3 /hpf (0-4); Urobilinogen,Urine <2.0 mg/dL (<2.0); WBC,Urine 12 /hpf (0-5)
[2021-02-17 03:43] VITALS: RESP 16; TEMP 98.3
--- NOTE | 2021-02-17 04:16 | XR ---
EXAM: XR Chest, 1 View CLINICAL HISTORY: ITS.REASON XR Reason: Cough; Shortness of breath TECHNIQUE: Frontal view of the chest. COMPARISON: No relevant prior studies available. FINDINGS: Lungs: Unremarkable. No consolidation. Pleural space: Unremarkable. No pneumothorax. Heart: Unremarkable. No cardiomegaly. Mediastinum: Unremarkable. Bones/joints: Unremarkable. IMPRESSION: No evidence of acute cardiopulmonary disease.
[2021-02-17] MEDS ORDERED: NITROFURANTOIN MONOHYD/M-CRYST 100 MG CAP PO STA (04:23)
[2021-02-17] MEDS ORDERED: ONDANSETRON 4 MG ODT STARTER PACK 2 TAB BTL PO STA (04:23)
--- NOTE | 2021-02-17 04:23 | ED ---
Nausea/Vomiting/Diarrhea HPI - General Chief complaint: Nausea/Vomiting/Diarrhea Stated complaint: Abd Pain Time Seen by Provider: 02/17/21 02:30 Source: patient Mode of arrival: ambulatory Limitations: no limitations - History of Present Illness Initial comments: 20-year-old female patient presents to the emergency department today for evaluation of cough, congestion, shortness of breath. States she is also having some nausea. Reports some suprapubic abdominal discomfort. States symptoms started earlier today. States she has felt feverish and chilled. Denies any chance of . Denies any significant abdominal pain, constipation, or diarrhea. Denies abnormal vaginal bleeding or discharge. Patient denies any recent rash, chest pain, back pain, numbness, tingling, dizziness, weakness, hematuria, dysuria, urinary urgency, urinary frequency, headache, visual changes, or any other complaints. - Related Data Home Medications Medication Instructions Recorded Confirmed Acetaminophen [Tylenol] 1,000 mg PO Q4-6H PRN 11/12/19 11/12/19 Fluticasone Nasal [place] [Flonase 2 spr EA NOSTRIL DAILY PRN 11/12/19 11/12/19 Nasal [place]] Previous Rx's Medication Instructions Recorded Ibuprofen [Motrin] 600 mg PO Q8HR PRN #30 tab 11/12/19 Oseltamivir [Tamiflu] 75 mg PO Q12HR #10 cap 11/12/19 Nitrofurantoin Monohyd/M-Cryst 100 mg PO Q12HR #14 cap 02/17/21 [Macrobid] Ondansetron [Zofran ODT] 4 mg PO Q8HR PRN #10 tab 02/17/21 guaiFENesin-DM 600/30MG [Mucinex 1 each PO Q12HR #10 tab.er.12h 02/17/21 Dm] Allergies Allergy/AdvReac Type Severity Reaction Status Date / Time cinnamon Allergy Anaphylaxis Verified 02/17/21 02:10 Review of Systems ROS Statement: Those systems with pertinent positive or pertinent negative responses have been documented in the HPI. ROS Other: All systems not noted in ROS Statement are negative. Past Medical History Past Medical History: No Reported History History of Any Multi-Drug Resistant Organisms: None Reported Past Surgical History: No Surgical Hx Reported Additional Past Surgical History / Comment(s): Plastic surgery repair to upper lip after dog bite Past Anesthesia/Blood Transfusion Reactions: No Reported Reaction Past Psychological History: No Psychological Hx Reported Smoking Status: Former smoker Past Alcohol Use History: None Reported Past Drug Use History: Marijuana - Past Family History Father History Unknown: Yes Additional Family Medical History / Comment(s): Heart disease of unknown origin. at 42 years old Mother Family Medical History: Diabetes Mellitus General Exam Limitations: no limitations General appearance: alert, in no apparent distress Eye exam: Present: normal appearance, PERRL, EOMI. Absent: scleral icterus, conjunctival injection, periorbital swelling ENT exam: Present: normal exam, normal oropharynx, mucous membranes moist Respiratory exam: Present: normal lung sounds bilaterally. Absent: respiratory distress, wheezes, rales, rhonchi, stridor Cardiovascular Exam: Present: regular rate, normal rhythm, normal heart sounds. Absent: systolic murmur, diastolic murmur, rubs, gallop, clicks GI/Abdominal exam: Present: soft, tenderness (Suprapubic), normal bowel sounds. Absent: distended, guarding, rebound, rigid Back exam: Absent: CVA tenderness (R), CVA tenderness (L) Neurological exam: Present: alert, oriented X3, CN II-XII intact Psychiatric exam: Present: normal affect, normal mood Skin exam: Present: warm, dry, intact, normal color. Absent: rash Course Vital Signs 02/17/21 02/17/21 02/17/21 02:08 03:42 04:34 Temperature 99.1 F 98.3 F Pulse Rate 117 H 82 88 Respiratory 20 16 16 Rate Blood Pressure 133/87 121/73 125/76 O2 Sat by Pulse 97 100 100 Oximetry Medical Decision Making - Medical Decision Making 20-year-old female patient is in for evaluation of cough, congestion, nausea. Physical examination did reveal clear equal lung sounds. Abdomen did reveal some mild superpubic tenderness but no guarding or rebound. She is afebrile here. Chest x-ray is negative to tested negative for influenza and COVID-19. Urinalysis did show evidence for urinary tract infection. She'll be started on antibiotic for this. Given Mucinex DM for cough. And Zofran for nausea. She is instructed to follow-up with her primary care physician for recheck in 1-2 days. Return parameters were discussed in detail. She verbalizes understanding and agrees with this plan. My attending is Dr. Khan. - Lab Data Lab Results 02/17/21 02/17/21 02/17/21 Range/Units 03:06 03:06 03:06 Urine Color Yellow Urine Appearance Clear (Clear) Urine pH 6.0 (5.0-8.0) Ur Specific [place] 1.033 (1.001-1.035) Urine Protein Trace H (Negative) Urine Glucose (UA) Negative (Negative) Urine Ketones 4+ H (Negative) Urine Blood Negative (Negative) Urine Nitrite Negative (Negative) Urine Bilirubin Negative (Negative) Urine Urobilinogen <2.0 (<2.0) mg/dL Ur Leukocyte Esterase Large H (Negative) Urine RBC 1 (0-5) /hpf Urine WBC 12 H (0-5) /hpf Ur Squamous Epith Cells 3 (0-4) /hpf Urine Bacteria Rare H (None) /hpf Urine Mucus Few H (None) /hpf Urine HCG, Qual Not Detected (Not Detectd) Coronavirus (PCR) (Not Detectd) Influenza Type A RNA Not Detected (Not Detectd) Influenza Type B (PCR) Not Detected (Not Detectd) 02/17/21 Range/Units 03:06 Urine Color Urine Appearance (Clear) Urine pH (5.0-8.0) Ur Specific [place] (1.001-1.035) Urine Protein (Negative) Urine Glucose (UA) (Negative) Urine Ketones (Negative) Urine Blood (Negative) Urine Nitrite (Negative) Urine Bilirubin (Negative) Urine Urobilinogen (<2.0) mg/dL Ur Leukocyte Esterase (Negative) Urine RBC (0-5) /hpf Urine WBC (0-5) /hpf Ur Squamous Epith Cells (0-4) /hpf Urine Bacteria (None) /hpf Urine Mucus (None) /hpf Urine HCG, Qual (Not Detectd) Coronavirus (PCR) Not Detected (Not Detectd) Influenza Type A RNA (Not Detectd) Influenza Type B (PCR) (Not Detectd) - Radiology Data Radiology results: report reviewed, image reviewed No evidence of acute cardiopulmonary disease. Disposition Clinical Impression: UTI (urinary tract infection), Viral upper respiratory infection Disposition: HOME SELF-CARE Condition: Good Instructions (If sedation given, give patient instructions): Urinary Tract Infection in Women (ED), Upper Respiratory Infection (ED) Additional Instructions: Take medications as directed. Up with primary care physician for recheck in 1-2 days. Return for any new, worsening, or concerning symptoms. Prescriptions: Nitrofurantoin Monohyd/M-Cryst [Macrobid] 100 mg PO Q12HR #14 cap guaiFENesin-DM 600/30MG [Mucinex Dm] 1 each PO Q12HR #10 tab.er.12h Ondansetron [Zofran ODT] 4 mg PO Q8HR PRN #10 tab PRN Reason: Nausea Is patient prescribed a controlled substance at d/c from ED?: No Referrals: Atul Rizzo MD [Primary Care Provider] - 1-2 days Time of Disposition: 04:22
[2021-02-17 04:38] VITALS: BP 125/76; PULSE 88
== END 2021-02-17 04:34 | disposition home or self-care (01) ==
LOC: EC 02:06
DX: N39.0 Urinary tract infection, site not specified (principal); J06.9 Acute upper respiratory infection, unspecified; Z87.891 Personal history of nicotine dependence; Z20.822 Contact with and (suspected) exposure to COVID-19
CPT/HCPCS: 81001; 81025; 87086; 87502; 87635; 71045; 99284; 96374; 96375; J2405; J1885; S0119

== ENCOUNTER → 2021-02-22 | Outpatient (CLI) | payer OTHER | END | disposition home or self-care (01) | LOC: LABWHC1 16:25 | PROVIDERS: ATTEND Otolaryngology | DX: Z01.812 Encounter for preprocedural laboratory examination (principal); Z20.822 Contact with and (suspected) exposure to COVID-19 | CPT/HCPCS: U0003; C9803 ==

== ENCOUNTER 2021-03-01 12:41 | Emergency (ER) | payer OTHER ==
[2021-03-01 12:50] VITALS: BP 132/71; PULSE 75; RESP 20; TEMP 97.8
[2021-03-01] MEDS ORDERED: ACET/COD 300 MG/30 MG STARTER PACK 6 TAB BTL PO STA (13:05)
--- NOTE | 2021-03-01 13:06 | ED ---
ENT HPI - General Chief complaint: Dental/Oral Stated complaint: dental pain Time Seen by Provider: 03/01/21 12:57 Source: patient, RN notes reviewed Mode of arrival: ambulatory Limitations: no limitations - History of Present Illness Initial comments: 20-year-old female presented emergency department chief complaint of dental pain. She had extraction 6 days ago. Patient states is swollen, sided painful has been like this. Patient denies any fevers or chills. She states she is a nonsmoker has not used any straws. Patient did not follow-up at this point with the clinic she states she attempted to call but no response. Denies any difficulty swallowing or difficulty breathing - Related Data Home Medications Medication Instructions Recorded Confirmed Acetaminophen [Tylenol] 1,000 mg PO Q4-6H PRN 11/12/19 11/12/19 Fluticasone Nasal [place] [Flonase 2 spr EA NOSTRIL DAILY PRN 11/12/19 11/12/19 Nasal [place]] Previous Rx's Medication Instructions Recorded Ibuprofen [Motrin] 600 mg PO Q8HR PRN #30 tab 11/12/19 Oseltamivir [Tamiflu] 75 mg PO Q12HR #10 cap 11/12/19 Nitrofurantoin Monohyd/M-Cryst 100 mg PO Q12HR #14 cap 02/17/21 [Macrobid] Ondansetron [Zofran ODT] 4 mg PO Q8HR PRN #10 tab 02/17/21 guaiFENesin-DM 600/30MG [Mucinex 1 each PO Q12HR #10 tab.er.12h 02/17/21 Dm] Chlorhexidine Gluconate [Peridex] 15 ml PO BID #1 bottle 03/01/21 Clindamycin HCl 300 mg PO Q6HR #40 cap 03/01/21 Allergies Allergy/AdvReac Type Severity Reaction Status Date / Time cinnamon Allergy Anaphylaxis Verified 03/01/21 12:50 Review of Systems ROS Statement: Those systems with pertinent positive or pertinent negative responses have been documented in the HPI. ROS Other: All systems not noted in ROS Statement are negative. Past Medical History Past Medical History: No Reported History History of Any Multi-Drug Resistant Organisms: None Reported Past Surgical History: No Surgical Hx Reported Additional Past Surgical History / Comment(s): Plastic surgery repair to upper lip after dog bite Past Anesthesia/Blood Transfusion Reactions: No Reported Reaction Past Psychological History: No Psychological Hx Reported Smoking Status: Former smoker Past Alcohol Use History: None Reported Past Drug Use History: Marijuana - Past Family History Father History Unknown: Yes Additional Family Medical History / Comment(s): Heart disease of unknown origin. at 42 years old Mother Family Medical History: Diabetes Mellitus General Exam Limitations: no limitations General appearance: alert, in no apparent distress Head exam: Present: atraumatic, normocephalic, normal inspection Eye exam: Present: normal appearance, PERRL, EOMI. Absent: scleral icterus, conjunctival injection, periorbital swelling ENT exam: Present: mucous membranes moist, TM's normal bilaterally. Absent: normal exam, normal oropharynx (Dental swelling left lower there is a pocket noted posterior lower aspect with some purulent drainage) Neck exam: Present: normal inspection, full ROM. Absent: tenderness, meningismus, lymphadenopathy Respiratory exam: Present: normal lung sounds bilaterally. Absent: respiratory distress, wheezes, rales, rhonchi, stridor Cardiovascular Exam: Present: regular rate, normal rhythm, normal heart sounds. Absent: systolic murmur, diastolic murmur, rubs, gallop, clicks Course Vital Signs 03/01/21 12:46 Temperature 97.8 F Pulse Rate 75 Respiratory 20 Rate Blood Pressure 132/71 O2 Sat by Pulse 98 Oximetry Medical Decision Making - Medical Decision Making Patient was placed on clindamycin advised to follow-up. Patient may have small underlying Dental infection versus dry socket. Patient given mouthwash return parameters were discussed. Disposition Clinical Impression: Dental infection, Pain, dental Disposition: HOME SELF-CARE Condition: Stable Instructions (If sedation given, give patient instructions): Dental Abscess (ED) Additional Instructions: Please return to the Emergency Department if symptoms worsen or any other concerns. Prescriptions: Clindamycin HCl 300 mg PO Q6HR #40 cap Chlorhexidine Gluconate [Peridex] 15 ml PO BID #1 bottle Is patient prescribed a controlled substance at d/c from ED?: No Referrals: Atul Rizzo MD [Primary Care Provider] - 1-2 days Time of Disposition: 13:06
== END 2021-03-01 13:19 | disposition home or self-care (01) ==
LOC: EC 12:41
DX: K04.7 Periapical abscess without sinus (principal); Z87.891 Personal history of nicotine dependence; Z91.018 Allergy to other foods
CPT/HCPCS: 99282

== ENCOUNTER 2021-03-04 21:09 | Emergency (ER) | payer OTHER ==
[2021-03-04 21:17] VITALS: RESP 18; TEMP 98
[2021-03-04] MEDS ORDERED: Acetaminophen-Codeine 300-30mg TAB PO STA (21:36)
[2021-03-04] MEDS ORDERED: BUPIVACAINE-EPI 0.5%-1:200,000 10 ML VIAL SQ STA (21:55)
--- NOTE | 2021-03-04 22:26 | ED ---
ENT HPI - General Chief complaint: ENT Stated complaint: L facial & Ear pain Time Seen by Provider: 03/04/21 21:18 Source: patient, RN notes reviewed Mode of arrival: ambulatory Limitations: no limitations - History of Present Illness Initial comments: 20-year-old female presents to the emergency room in for a second evaluation of dental pain. She notes that she still does have her clindamycin from previous visit. She notes that the pain has continued with no relief and she just wanted to get it imaged taken to make sure everything was okay. She denied any other issues or complaints at this time. She was well-appearing well-hydrated 20-year-old female in no apparent distress or pain while sitting up in bed during exam and interview. She denied any chest pain shortness breath headache nausea vomiting diarrhea constipation fever fatigue chills difficulty breathing difficulty swallowing difficulty opening her mouth. - Related Data Home Medications Medication Instructions Recorded Confirmed Acetaminophen [Tylenol] 1,000 mg PO Q4-6H PRN 11/12/19 11/12/19 Fluticasone Nasal [place] [Flonase 2 spr EA NOSTRIL DAILY PRN 11/12/19 11/12/19 Nasal [place]] Previous Rx's Medication Instructions Recorded Ibuprofen [Motrin] 600 mg PO Q8HR PRN #30 tab 11/12/19 Oseltamivir [Tamiflu] 75 mg PO Q12HR #10 cap 11/12/19 Nitrofurantoin Monohyd/M-Cryst 100 mg PO Q12HR #14 cap 02/17/21 [Macrobid] Ondansetron [Zofran ODT] 4 mg PO Q8HR PRN #10 tab 02/17/21 guaiFENesin-DM 600/30MG [Mucinex 1 each PO Q12HR #10 tab.er.12h 02/17/21 Dm] Chlorhexidine Gluconate [Peridex] 15 ml PO BID #1 bottle 03/01/21 Clindamycin HCl 300 mg PO Q6HR #40 cap 03/01/21 Allergies Allergy/AdvReac Type Severity Reaction Status Date / Time cinnamon Allergy Anaphylaxis Verified 03/04/21 21:14 Review of Systems ROS Statement: Those systems with pertinent positive or pertinent negative responses have been documented in the HPI. ROS Other: All systems not noted in ROS Statement are negative. Past Medical History Past Medical History: No Reported History History of Any Multi-Drug Resistant Organisms: None Reported Past Surgical History: No Surgical Hx Reported Additional Past Surgical History / Comment(s): Plastic surgery repair to upper lip after dog bite Past Anesthesia/Blood Transfusion Reactions: No Reported Reaction Past Psychological History: Anxiety Smoking Status: Former smoker Past Alcohol Use History: None Reported Past Drug Use History: None Reported, Marijuana - Past Family History Father History Unknown: Yes Additional Family Medical History / Comment(s): Heart disease of unknown origin. at 42 years old Mother Family Medical History: Diabetes Mellitus General Exam Limitations: no limitations General appearance: alert, in no apparent distress Head exam: Present: atraumatic, normocephalic, normal inspection Eye exam: Present: normal appearance, PERRL, EOMI. Absent: scleral icterus, conjunctival injection, periorbital swelling ENT exam: Present: normal exam, normal oropharynx, mucous membranes moist Expanded Mouth exam: Present: normal external inspection, tongue normal. Absent: drooling, trismus, muffled voice Teeth exam: Present: normal inspection Throat exam: normal inspection Neck exam: Present: normal inspection Respiratory exam: Present: normal lung sounds bilaterally. Absent: respiratory distress, wheezes, rales, rhonchi, stridor Cardiovascular Exam: Present: regular rate, normal rhythm, normal heart sounds. Absent: systolic murmur, diastolic murmur, rubs, gallop, clicks GI/Abdominal exam: Present: soft, normal bowel sounds. Absent: distended, tenderness, guarding, rebound, rigid Extremities exam: Present: normal inspection, full ROM, normal capillary refill. Absent: tenderness, pedal edema, joint swelling, calf tenderness Neurological exam: Present: alert, oriented X3 Psychiatric exam: Present: normal affect, normal mood Skin exam: Present: warm, dry, intact, normal color. Absent: rash Course Vital Signs 03/04/21 21:15 Temperature 98.0 F Pulse Rate 96 Respiratory 18 Rate Blood Pressure 128/83 O2 Sat by Pulse 99 Oximetry Medical Decision Making - Medical Decision Making 20-year-old female complaining of left-sided mouth pain 9 days post dental extraction for a bottom left molar. Tylenol 3, 0.25% bupivacaine ordered for nerve block. Patient declined pain medication and nerve block stating she just wanted an image taken of her face to make sure there was okay. Case discussed with Dr. Lu, patient can discharge home with follow-up to dentist tomorrow. - Radiology Data Radiology results: report reviewed, image reviewed CT of the face: Negative computed tomography scan of the facial bones. Disposition Clinical Impression: Dental infection, Pain, dental Disposition: HOME SELF-CARE Condition: Stable Instructions (If sedation given, give patient instructions): Toothache (ED) Additional Instructions: Please return to the Emergency Department if symptoms worsen or any other concerns. Follow-up with dentist tomorrow. Continue take antibiotics as prescribed. Is patient prescribed a controlled substance at d/c from ED?: No Referrals: Atul Rizzo MD [Primary Care Provider] - 1-2 days Time of Disposition: 22:50
--- NOTE | 2021-03-04 22:48 | CT ---
EXAMINATION TYPE: CT facial bones wo con DATE OF EXAM: 03/04/2021 COMPARISON: None HISTORY: Left sided facial pain with recent tooth extraction CT DLP: 425.9 mGycm Automated exposure control for dose reduction was used. Images obtained from the bottom of the mandible to the top of the frontal sinuses without contrast. The mandibular ring is intact. Temporomandibular joints appear normal. Zygomatic arches appear normal . The maxilla is intact. There is no evidence of a blowout fracture. Orbital margins are intact. Ther e is no retro-orbital mass. The nasal bone appears normal. There is defect in the left posterior sujey ible apparently from tooth extraction. I see no focal bony destructive process. Parotid glands are sy mmetric. Submandibular salivary glands are symmetric. IMPRESSION: Negative CT scan of the facial bones.
[2021-03-04 22:57] VITALS: BP 141/90; PULSE 87
== END 2021-03-04 22:58 | disposition home or self-care (01) ==
LOC: EC 21:09
DX: K04.7 Periapical abscess without sinus (principal); Z87.891 Personal history of nicotine dependence; Z91.018 Allergy to other foods
CPT/HCPCS: 70486; 99283

== ENCOUNTER → 2021-03-08 | Outpatient (CLI) | payer OTHER | END | disposition home or self-care (01) | LOC: LABWHC1 14:17 | PROVIDERS: ATTEND Otolaryngology | DX: Z01.818 Encounter for other preprocedural examination (principal); Z20.822 Contact with and (suspected) exposure to COVID-19 | CPT/HCPCS: U0003; C9803; U0005 ==

== ENCOUNTER 2021-03-21 03:14 | Emergency (ER) | payer OTHER ==
[2021-03-21 03:20] VITALS: TEMP 98.1
[2021-03-21] MEDS ORDERED: LIDOCAINE VISCOUS 2% 15 ML CUP MUCOUS MEM STA (03:34)
[2021-03-21] MEDS ORDERED: MAG HYDROX/AL HYDROX/SIMETH 30 ML CUP PO PRN (03:34)
[2021-03-21 04:13] VITALS: BP 128/91; PULSE 107; RESP 18
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
== END 2021-03-21 04:20 | disposition home or self-care (01) ==
LOC: EC 03:14
DX: F41.9 Anxiety disorder, unspecified (principal); Z87.891 Personal history of nicotine dependence; Z91.018 Allergy to other foods
CPT/HCPCS: 99283

== ENCOUNTER 2021-03-26 03:23 | Emergency (ER) | payer OTHER ==
--- NOTE | 2021-03-26 03:27 | ED ---
Recheck HPI - General Stated Complaint: Post-op bleeding Time Seen by Provider: 03/26/21 03:27 Source: RN notes reviewed, old records reviewed Mode of arrival: EMS Limitations: no limitations - History of Present Illness Initial Comments: This is a 21-year-old female presenting with anxiety reaction. Patient is having some bleeding after tonsillar surgery. Patient had a tonsils removed about a week ago now is had a follow-up appointment which was unremarkable both coughing and did spit up some blood tonight. Patient denies feelings of lightheadedness or dizziness. Does admit to severe anxiety secondary to seeing the right red blood that she was spitting up. Patient denying any pain. She has been feeling well MD Complaint: other (Spitting up blood after postop tonsillectomy) -: minutes(s) Returns Today for: other (Bleeding has slowed down if not stopped) Symptoms Since Prior Visit: no new symptoms Context: other (Tonsillectomy) Associated Symptoms: none Treatments Prior to Arrival: other (none) - Related Data Home Medications Medication Instructions Recorded Confirmed Acetaminophen [Tylenol] 1,000 mg PO Q4-6H PRN 11/12/19 11/12/19 Fluticasone Nasal [place] [Flonase 2 spr EA NOSTRIL DAILY PRN 11/12/19 11/12/19 Nasal [place]] Previous Rx's Medication Instructions Recorded Ibuprofen [Motrin] 600 mg PO Q8HR PRN #30 tab 11/12/19 Oseltamivir [Tamiflu] 75 mg PO Q12HR #10 cap 11/12/19 Nitrofurantoin Monohyd/M-Cryst 100 mg PO Q12HR #14 cap 02/17/21 [Macrobid] Ondansetron [Zofran ODT] 4 mg PO Q8HR PRN #10 tab 02/17/21 guaiFENesin-DM 600/30MG [Mucinex 1 each PO Q12HR #10 tab.er.12h 02/17/21 Dm] Chlorhexidine Gluconate [Peridex] 15 ml PO BID #1 bottle 03/01/21 Clindamycin HCl 300 mg PO Q6HR #40 cap 03/01/21 Allergies Allergy/AdvReac Type Severity Reaction Status Date / Time cinnamon Allergy Anaphylaxis Verified 03/21/21 03:20 Review of Systems ROS Statement: Those systems with pertinent positive or pertinent negative responses have been documented in the HPI. ROS Other: All systems not noted in ROS Statement are negative. Past Medical History Past Medical History: No Reported History History of Any Multi-Drug Resistant Organisms: None Reported Past Surgical History: Adenoidectomy, Tonsillectomy Additional Past Surgical History / Comment(s): Plastic surgery repair to upper lip after dog bite Past Anesthesia/Blood Transfusion Reactions: No Reported Reaction Past Psychological History: Anxiety Smoking Status: Former smoker Past Alcohol Use History: None Reported Past Drug Use History: None Reported, Marijuana - Past Family History Father History Unknown: Yes Additional Family Medical History / Comment(s): Heart disease of unknown origin. at 42 years old Mother Family Medical History: Diabetes Mellitus General Exam General appearance: alert, in no apparent distress Head exam: Present: atraumatic, normocephalic, normal inspection Eye exam: Present: normal appearance, PERRL, EOMI. Absent: scleral icterus, conjunctival injection, periorbital swelling ENT exam: Present: normal exam, mucous membranes moist, other (Posterior pharynx is healing appropriately with no significant bleeding noted) Neck exam: Present: normal inspection. Absent: tenderness, meningismus, lymphadenopathy Respiratory exam: Present: normal lung sounds bilaterally. Absent: respiratory distress, wheezes, rales, rhonchi, stridor Cardiovascular Exam: Present: regular rate, normal rhythm, normal heart sounds. Absent: systolic murmur, diastolic murmur, rubs, gallop, clicks GI/Abdominal exam: Present: soft, normal bowel sounds. Absent: distended, tenderness, guarding, rebound, rigid Extremities exam: Present: normal inspection, full ROM, normal capillary refill. Absent: tenderness, pedal edema, joint swelling, calf tenderness Back exam: Present: normal inspection Neurological exam: Present: alert, oriented X3, CN II-XII intact Psychiatric exam: Present: normal affect, normal mood Skin exam: Present: warm, dry, intact, normal color. Absent: rash Course Vital Signs 03/26/21 03/26/21 03:30 05:14 Temperature 97.6 F Pulse Rate 110 H 97 Respiratory 24 18 Rate Blood Pressure 109/91 115/79 O2 Sat by Pulse 97 99 Oximetry - Reevaluation(s) Reevaluation #1: 03/26/21 05:20 Medical record is reviewed Reevaluation #2: 03/26/21 05:20 No bright red blood vomiting here in the ER, patient is given cold water rinses Reevaluation #3: 03/26/21 05:21 Patient is reassured here in the ER she feels well without symptoms of near- syncope Vital signs normal Medical Decision Making - Medical Decision Making 21 female to the ER for evaluation. Bleeding tonsillar bleeding. Bleeding has stopped at this time. Patient can be discharged home Disposition Clinical Impression: Post-op bleeding Disposition: HOME SELF-CARE Condition: Good Instructions (If sedation given, give patient instructions): Postoperative Bleeding (ED) Is patient prescribed a controlled substance at d/c from ED?: No Referrals: None,Stated [Primary Care Provider] - 1-2 days
[2021-03-26 03:35] VITALS: TEMP 97.6
[2021-03-26 05:15] VITALS: BP 115/79
[2021-03-26] MEDS ORDERED: ONDANSETRON 4 MG ODT STARTER PACK 2 TAB BTL PO STA (06:23)
[2021-03-26] MEDS ORDERED: ACET/COD 300 MG/30 MG STARTER PACK 6 TAB BTL PO STA (06:23)
[2021-03-26 06:25] VITALS: PULSE 101; RESP 20
== END 2021-03-26 06:31 | disposition home or self-care (01) ==
LOC: EC 03:23
DX: J95.830 Postprocedural hemorrhage of a respiratory system organ or structure following a respiratory system procedure (principal); Z87.891 Personal history of nicotine dependence; Z91.018 Allergy to other foods; Z90.89 Acquired absence of other organs
CPT/HCPCS: 99283; S0119

== ENCOUNTER 2021-03-26 17:59 | Emergency (ER) | payer OTHER ==
[2021-03-26 18:20] VITALS: BP 115/78; RESP 18
[2021-03-26 19:51] LABS: Basophils # (A) 0.1 k/uL (0-0.2); Basophils % (A) 0 %; Eosinophils # (A) 0.1 k/uL (0-0.7); Eosinophils % (A) 1 %; HCT 43.8 % (34.0-46.0); HGB 15.2 gm/dL (11.4-16.0); Lymphocytes # (A) 2.9 k/uL (1.0-4.8); Lymphocytes % (A) 20 %; MCH 29.9 pg (25.0-35.0); MCHC 34.7 g/dL (31.0-37.0); Mean Platelet Volume 8.4; Monocytes # (A) 0.6 k/uL (0-1.0); Monocytes % (A) 4 %; Neutrophils # (A) 10.8 k/uL (1.3-7.7); Neutrophils % (A) 73 %; Platelet Count 399 k/uL (150-450); RDW 12.8 % (11.5-15.5); WBC 14.8 k/uL (3.8-10.6)
[2021-03-26 19:59] LABS: African American GFR (CKD) >90 (>60 ml/min/1.73 sqM); Anion Gap 20 mmol/L; Blood Urea Nitrogen 6 mg/dL (7-17); Calcium 10.1 mg/dL (8.4-10.2); Carbon Dioxide 15 mmol/L (22-30); Chloride 105 mmol/L (98-107); Glucose 76 mg/dL (74-99); Non-African American GFR(CKD) >90 (>60 ml/min/1.73 sqM); Potassium 3.5 mmol/L (3.5-5.1); Sodium 140 mmol/L (137-145)
--- NOTE | 2021-03-26 20:05 | XR ---
EXAMINATION TYPE: XR chest 1V portable DATE OF EXAM: 03/26/2021 COMPARISON: NONE HISTORY: Hemoptysis. TECHNIQUE: Single view FINDINGS: Heart and mediastinum are normal. Lungs are clear. Diaphragm is normal. Bony thorax appears normal. IMPRESSION: Normal chest.
--- NOTE | 2021-03-26 20:07 | XR ---
EXAMINATION TYPE: XR soft tissue neck DATE OF EXAM: 03/26/2021 COMPARISON: NONE HISTORY: Hemoptysis TECHNIQUE: 2 views FINDINGS: Tonsils and adenoids appear normal. Epiglottis appears normal. Subglottic trachea appears n ormal. There is mild straightening of the cervical spine. There is a slight kyphotic curvature. IMPRESSION: Cervical kyphotic curvature. No fracture. Negative cervical soft tissue exam.
--- NOTE | 2021-03-26 20:29 | ED ---
ENT HPI - General Chief complaint: ENT Stated complaint: revisit - post op tonsil bleeding Time Seen by Provider: 03/26/21 19:12 Source: patient, RN notes reviewed Mode of arrival: ambulatory Limitations: no limitations - History of Present Illness Initial comments: Patient is a 21-year-old female that presents to the emergency department complaining of very minimal hemoptysis status post tonsillectomy. She notes that she's been seen a couple times and has been doing everything that she's been told such as cold water rinses. She notes she has not followed up with her surgeon yet. She notes she tried calling the day with no return call. She was a well-appearing 21-year-old female in no apparent distress. She denied any chest pain shortness of breath headache nausea vomiting diarrhea constipation fever fatigue chills. - Related Data Home Medications Medication Instructions Recorded Confirmed Acetaminophen [Tylenol] 1,000 mg PO Q4-6H PRN 11/12/19 11/12/19 Fluticasone Nasal [place] [Flonase 2 spr EA NOSTRIL DAILY PRN 11/12/19 11/12/19 Nasal [place]] Previous Rx's Medication Instructions Recorded Ibuprofen [Motrin] 600 mg PO Q8HR PRN #30 tab 11/12/19 Oseltamivir [Tamiflu] 75 mg PO Q12HR #10 cap 11/12/19 Nitrofurantoin Monohyd/M-Cryst 100 mg PO Q12HR #14 cap 02/17/21 [Macrobid] Ondansetron [Zofran ODT] 4 mg PO Q8HR PRN #10 tab 02/17/21 guaiFENesin-DM 600/30MG [Mucinex 1 each PO Q12HR #10 tab.er.12h 02/17/21 Dm] Chlorhexidine Gluconate [Peridex] 15 ml PO BID #1 bottle 03/01/21 Clindamycin HCl 300 mg PO Q6HR #40 cap 03/01/21 Allergies Allergy/AdvReac Type Severity Reaction Status Date / Time cinnamon Allergy Anaphylaxis Verified 03/26/21 18:20 Review of Systems ROS Statement: Those systems with pertinent positive or pertinent negative responses have been documented in the HPI. ROS Other: All systems not noted in ROS Statement are negative. Past Medical History Past Medical History: No Reported History History of Any Multi-Drug Resistant Organisms: None Reported Past Surgical History: Adenoidectomy, Tonsillectomy Additional Past Surgical History / Comment(s): Plastic surgery repair to upper lip after dog bite Past Anesthesia/Blood Transfusion Reactions: No Reported Reaction Past Psychological History: Anxiety Smoking Status: Former smoker Past Alcohol Use History: None Reported Past Drug Use History: None Reported, Marijuana - Past Family History Father History Unknown: Yes Additional Family Medical History / Comment(s): Heart disease of unknown origin. at 42 years old Mother Family Medical History: Diabetes Mellitus General Exam Limitations: no limitations General appearance: alert, in no apparent distress, obese, other (No active bleeding while in the emergency Department.) Head exam: Present: atraumatic, normocephalic, normal inspection Eye exam: Present: normal appearance, PERRL, EOMI. Absent: scleral icterus, conjunctival injection, periorbital swelling ENT exam: Present: normal exam, normal oropharynx, mucous membranes moist Neck exam: Present: normal inspection Respiratory exam: Present: normal lung sounds bilaterally. Absent: respiratory distress, wheezes, rales, rhonchi, stridor Cardiovascular Exam: Present: regular rate, normal rhythm, normal heart sounds. Absent: systolic murmur, diastolic murmur, rubs, gallop, clicks Extremities exam: Present: normal inspection, full ROM, normal capillary refill. Absent: tenderness, pedal edema, joint swelling, calf tenderness Neurological exam: Present: alert, oriented X3 Psychiatric exam: Present: normal affect, normal mood Skin exam: Present: warm, dry, intact, normal color. Absent: rash Course Vital Signs 03/26/21 18:16 Temperature 98.2 F Pulse Rate 94 Respiratory 18 Rate Blood Pressure 115/78 O2 Sat by Pulse 100 Oximetry Medical Decision Making - Medical Decision Making 21-year-old female complaining of hemoptysis internal bleeding status post tonsillectomy 11 days. Basic labs, soft tissue x-ray of the neck, chest x-ray ordered. X-ray imaging negative for any acute process. Labs unremarkable, elevated white count most likely postsurgical. Throat is nonbleeding upon exam, airways patent. Labs unremarkable. Case discussed with Dr. Tong, patient discharge home with follow-up to ENT. - Lab Data Result diagrams: 03/26/21 19:47 03/26/21 19:47 Lab Results 03/26/21 03/26/21 Range/Units 19:47 19:47 WBC 14.8 H (3.8-10.6) k/uL RBC 5.10 (3.80-5.40) m/uL Hgb 15.2 (11.4-16.0) gm/dL Hct 43.8 (34.0-46.0) % MCV 86.0 (80.0-100.0) fL MCH 29.9 (25.0-35.0) pg MCHC 34.7 (31.0-37.0) g/dL RDW 12.8 (11.5-15.5) % Plt Count 399 (150-450) k/uL MPV 8.4 Neutrophils % 73 % Lymphocytes % 20 % Monocytes % 4 % Eosinophils % 1 % Basophils % 0 % Neutrophils # 10.8 H (1.3-7.7) k/uL Lymphocytes # 2.9 (1.0-4.8) k/uL Monocytes # 0.6 (0-1.0) k/uL Eosinophils # 0.1 (0-0.7) k/uL Basophils # 0.1 (0-0.2) k/uL Sodium 140 (137-145) mmol/L Potassium 3.5 (3.5-5.1) mmol/L Chloride 105 (98-107) mmol/L Carbon Dioxide 15 L (22-30) mmol/L Anion Gap 20 mmol/L BUN 6 L (7-17) mg/dL Creatinine 0.54 (0.52-1.04) mg/dL Est GFR (CKD-EPI)AfAm >90 (>60 ml/min/1.73 sqM) Est GFR (CKD-EPI)NonAf >90 (>60 ml/min/1.73 sqM) Glucose 76 (74-99) mg/dL Calcium 10.1 (8.4-10.2) mg/dL - Radiology Data Radiology results: report reviewed, image reviewed Chest x-ray: No acute cardiopulmonary process. Soft tissue x-ray: No acute process. Disposition Clinical Impression: Post-op bleeding Disposition: HOME SELF-CARE Condition: Stable Instructions (If sedation given, give patient instructions): Hemoptysis (ED) Additional Instructions: Please return to the Emergency Department if symptoms worsen or any other concerns. Continue regular cold water rinses and/or popsicles. Follow-up with ENT as soon as possible. Is patient prescribed a controlled substance at d/c from ED?: No Referrals: None,Stated [Primary Care Provider] - 1-2 days Time of Disposition: 20:52
[2021-03-26 21:02] VITALS: PULSE 97; TEMP 98.3
== END 2021-03-26 21:02 | disposition home or self-care (01) ==
LOC: EC 17:59
DX: J95.830 Postprocedural hemorrhage of a respiratory system organ or structure following a respiratory system procedure (principal); Z87.891 Personal history of nicotine dependence; Z91.018 Allergy to other foods
CPT/HCPCS: 36415; 70360; 71045; 80048; 85025; 99283

== ENCOUNTER 2021-04-27 19:20 | Emergency (ER) | payer OTHER ==
[2021-04-27 20:00] VITALS: TEMP 98.1
--- NOTE | 2021-04-27 21:56 | US ---
EXAMINATION TYPE: Transabdominal DATE OF EXAM: 04/27/2021 9:42 PM COMPARISON: NONE CLINICAL HISTORY: Left pelvic pain/rule out ectopic; HCG 61.1. Patient states having an ultrasound to day and nothing was visualized. Bleeding. EXAM PERFORMED: Transabdominal (TA) EXAM MEASUREMENTS: GESTATIONAL AGE / DATING Physician Established: Not yet established Dates by LMP: (5 weeks/ 5 days) EDC: 12/23/2021 Dates by First Scan: No previous here, this is first scan here Dates by Current Scan for: No IUP seen at this time MATERNAL ANATOMY Uterus: 8.7 x 5.6 x 4.3 cm Right Ovary: 3.3 x 2.0 x 1.9 cm Left Ovary: 2.9 x 2.0 x 1.6 cm, follicles seen Post CDS / Adnexa: no free fluid Presence of free fluid: no Presence of corpus luteal cyst: no GESTATION / SURVEY IUP: No IUP seen at this time Date of LMP: 03/18/2021, Beta HcG (if available): 61.1 No GS, YS or CRL visualized. Endometrium - 1.1 cm. IMPRESSION: Uterus is empty. No adnexal mass.
--- NOTE | 2021-04-27 22:10 | ED ---
General Adult HPI - General Chief complaint: Vaginal Bleeding Stated complaint: Abdominal pain Time Seen by Provider: 04/27/21 20:44 Source: patient Mode of arrival: ambulatory - History of Present Illness Initial comments: 21-year-old female patient presented to the emergency department today for evaluation of left pelvic pain and vaginal bleeding. Patient states she is but her [employer] believe she is having a miscarriage. She did have ultrasound at an clinic today which showed no intrauterine . She also had hormone level drawn outpatient by Dr. Rivera. Patient is concerned she is having an eptopic due to the pain. States the bleeding is light. Denies any back pain. Denies passage of clots or tissue. She is . She denies any hematuria, dysuria, urinary frequency, urinary urgency. Denies any constipation or diarrhea. Denies fever or chills. - Related Data Home Medications Medication Instructions Recorded Confirmed Acetaminophen [Tylenol] 1,000 mg PO Q4-6H PRN 11/12/19 11/12/19 Fluticasone Nasal [place] [Flonase 2 spr EA NOSTRIL DAILY PRN 11/12/19 11/12/19 Nasal [place]] Previous Rx's Medication Instructions Recorded Ibuprofen [Motrin] 600 mg PO Q8HR PRN #30 tab 11/12/19 Oseltamivir [Tamiflu] 75 mg PO Q12HR #10 cap 11/12/19 Nitrofurantoin Monohyd/M-Cryst 100 mg PO Q12HR #14 cap 02/17/21 [Macrobid] Ondansetron [Zofran ODT] 4 mg PO Q8HR PRN #10 tab 02/17/21 guaiFENesin-DM 600/30MG [Mucinex 1 each PO Q12HR #10 tab.er.12h 02/17/21 Dm] Chlorhexidine Gluconate [Peridex] 15 ml PO BID #1 bottle 03/01/21 Clindamycin HCl 300 mg PO Q6HR #40 cap 03/01/21 Allergies Allergy/AdvReac Type Severity Reaction Status Date / Time cinnamon Allergy Anaphylaxis Verified 04/27/21 20:00 Review of Systems ROS Statement: Those systems with pertinent positive or pertinent negative responses have been documented in the HPI. ROS Other: All systems not noted in ROS Statement are negative. Past Medical History Past Medical History: No Reported History Additional Past Medical History / Comment(s): blood clot in right arm History of Any Multi-Drug Resistant Organisms: None Reported Past Surgical History: Adenoidectomy, Tonsillectomy Additional Past Surgical History / Comment(s): Plastic surgery repair to upper lip after dog bite Past Anesthesia/Blood Transfusion Reactions: No Reported Reaction Past Psychological History: Anxiety Smoking Status: Former smoker Past Alcohol Use History: None Reported Past Drug Use History: None Reported, Marijuana - Past Family History Father History Unknown: Yes Additional Family Medical History / Comment(s): Heart disease of unknown origin. at 42 years old Mother Family Medical History: Diabetes Mellitus General Exam General appearance: alert, in no apparent distress, other (This is a well- developed, well-nourished adult female patient in no acute distress. Vital signs upon presentation are temperature 98.1F, pulse 77, respirations 18, blood pressure 133/87, pulse ox 98% on room air.) ENT exam: Present: normal exam, normal oropharynx, mucous membranes moist Respiratory exam: Present: normal lung sounds bilaterally. Absent: respiratory distress, wheezes, rales, rhonchi, stridor Cardiovascular Exam: Present: regular rate, normal rhythm, normal heart sounds. Absent: systolic murmur, diastolic murmur, rubs, gallop, clicks GI/Abdominal exam: Present: soft, tenderness (Left lower quadrant), normal bowel sounds. Absent: distended, guarding, rebound, rigid Neurological exam: Present: alert, oriented X3, CN II-XII intact Psychiatric exam: Present: normal affect, normal mood Skin exam: Present: warm, dry, intact, normal color. Absent: rash Course Vital Signs 04/27/21 04/27/21 19:58 21:30 Temperature 98.1 F Pulse Rate 77 82 Respiratory 18 16 Rate Blood Pressure 133/87 121/78 O2 Sat by Pulse 98 98 Oximetry Medical Decision Making - Medical Decision Making 21-year-old female patient presenting to the emergency department today for evaluation of left pelvic pain and vaginal bleeding and . Physical examination did reveal mild left lower quadrant tenderness. She did have outpatient hCG drawn today which was 61.1. Ultrasound of the pelvis was obtained here showed no evidence for current intrauterine or adnexal mass. Review of previous records show blood type is AB+. She does have an appointment for redraw of hCG on Friday and ultrasound on 05/09/2021. She'll be discharged to follow up with her [employer] as soon as possible. Return parameters were discussed in detail. She verbalizes understanding and agrees with this plan. My attending is Dr. Hutchins. - Radiology Data Radiology results: report reviewed, image reviewed Ultrasound of the pelvis is obtained. Report was reviewed in its entirety. Impression by Dr. Barfield shows uterus is empty. No adnexal mass. Disposition Clinical Impression: Pelvic pain, Miscarriage Disposition: HOME SELF-CARE Condition: Good Instructions (If sedation given, give patient instructions): Miscarriage (ED), Pelvic Pain in Women (ED) Additional Instructions: Follow up with OBGYN for recheck in 1-2 days. Return to the emergency department for any new, worsening, or concerning symptoms. Is patient prescribed a controlled substance at d/c from ED?: No Referrals: Jose Cunningham MD [Primary Care Provider] - 1-2 days Hui Rivera DO [Doctor of Osteopathic Medicine] - 1-2 days Time of Disposition: 22:10
[2021-04-27 22:31] VITALS: BP 121/78; PULSE 82; RESP 16
== END 2021-04-27 22:21 | disposition home or self-care (01) ==
LOC: EC 19:20
DX: O03.9 Complete or unspecified spontaneous abortion without complication (principal); Z87.891 Personal history of nicotine dependence; Z91.018 Allergy to other foods; Z3A.01 Less than 8 weeks gestation of pregnancy
CPT/HCPCS: 76801; 99284

== ENCOUNTER → 2021-04-27 | Outpatient (CLI) | payer OTHER | END | disposition home or self-care (01) | LOC: LABWHC1 12:30 | PROVIDERS: ATTEND Obstetrics & Gynecology | DX: O20.0 Threatened abortion (principal); Z3A.00 Weeks of gestation of pregnancy not specified | CPT/HCPCS: 36415; 84702 ==

== ENCOUNTER → 2021-04-30 | Outpatient (CLI) | payer OTHER | END | disposition home or self-care (01) | LOC: LABWHC1 08:14 | PROVIDERS: ATTEND Obstetrics & Gynecology | DX: N92.6 Irregular menstruation, unspecified (principal) | CPT/HCPCS: 36415; 84702 ==

== ENCOUNTER → 2021-05-08 | Outpatient (CLI) | payer OTHER | END | disposition home or self-care (01) | LOC: LABWHC1 15:25 | PROVIDERS: ATTEND Obstetrics & Gynecology | DX: O03.9 Complete or unspecified spontaneous abortion without complication (principal) | CPT/HCPCS: 36415; 84702 ==

== ENCOUNTER → 2021-05-15 | Outpatient (CLI) | payer OTHER | END | disposition home or self-care (01) | LOC: LABWHC1 11:15 | PROVIDERS: ATTEND Obstetrics & Gynecology | DX: O03.9 Complete or unspecified spontaneous abortion without complication (principal) | CPT/HCPCS: 36415; 84702 ==

== ENCOUNTER 2021-08-05 07:12 | Emergency (ER) | payer OTHER ==
[2021-08-05 07:22] VITALS: RESP 20
--- NOTE | 2021-08-05 09:30 | ED ---
SOB HPI - General Chief Complaint: Shortness of Breath Stated Complaint: Congestion,Vomiting Time Seen by Provider: 08/05/21 07:30 Source: patient, RN notes reviewed Mode of arrival: ambulatory Limitations: no limitations - History of Present Illness Initial Comments: Patient is a 21-year-old female presenting to emergency Department with complaints of a cough, and nausea and vomiting that started 2 days ago. Patient reports her children and significant other also have similar symptoms. She went to be tested for Covid. She denies any fevers or chills. She states her sputum has had blood in it. She is not on blood thinners. She denies any chest pain, no shortness of breath. She denies any severe abdominal pain only some intermittent cramping before she has diarrhea. She still been eating and drinking as normal. She has no pertinent past medical history, there are no further complaints today. Her vitals are stable upon arrival. - Related Data Home Medications Medication Instructions Recorded Confirmed Acetaminophen [Tylenol] 1,000 mg PO Q4-6H PRN 11/12/19 11/12/19 Fluticasone Nasal [place] [Flonase 2 spr EA NOSTRIL DAILY PRN 11/12/19 11/12/19 Nasal [place]] Previous Rx's Medication Instructions Recorded Ibuprofen [Motrin] 600 mg PO Q8HR PRN #30 tab 11/12/19 Oseltamivir [Tamiflu] 75 mg PO Q12HR #10 cap 11/12/19 Nitrofurantoin Monohyd/M-Cryst 100 mg PO Q12HR #14 cap 02/17/21 [Macrobid] Ondansetron [Zofran ODT] 4 mg PO Q8HR PRN #10 tab 02/17/21 guaiFENesin-DM 600/30MG [Mucinex 1 each PO Q12HR #10 tab.er.12h 02/17/21 Dm] Chlorhexidine Gluconate [Peridex] 15 ml PO BID #1 bottle 03/01/21 Clindamycin HCl 300 mg PO Q6HR #40 cap 03/01/21 Allergies Allergy/AdvReac Type Severity Reaction Status Date / Time cinnamon Allergy Anaphylaxis Verified 08/05/21 07:21 Review of Systems ROS Statement: Those systems with pertinent positive or pertinent negative responses have been documented in the HPI. ROS Other: All systems not noted in ROS Statement are negative. Past Medical History Past Medical History: No Reported History Additional Past Medical History / Comment(s): blood clot in right arm History of Any Multi-Drug Resistant Organisms: None Reported Past Surgical History: Adenoidectomy, Tonsillectomy Additional Past Surgical History / Comment(s): Plastic surgery repair to upper lip after dog bite Past Anesthesia/Blood Transfusion Reactions: No Reported Reaction Past Psychological History: Anxiety Smoking Status: Former smoker Past Alcohol Use History: None Reported Past Drug Use History: Marijuana - Past Family History Father History Unknown: Yes Additional Family Medical History / Comment(s): Heart disease of unknown origin. at 42 years old Mother Family Medical History: Diabetes Mellitus General Exam - General Exam Comments Initial Comments: GENERAL: Patient is well-developed and well-nourished. Patient is nontoxic and in no acute distress. HEAD: Atraumatic, normocephalic. EYES: Pupils equal round and reactive to light, extraocular movements intact, sclera anicteric, conjunctiva are normal. Eyelids were unremarkable. ENT: Oropharynx clear without exudates. Moist mucous membranes. NECK: Normal range of motion, supple without lymphadenopathy or JVD. LUNGS: Unlabored respirations. Breath sounds clear to auscultation bilaterally and equal. No wheezes rales or rhonchi. HEART: Regular rate and rhythm without murmurs, rubs or gallops. ABDOMEN: Soft, nontender, normoactive bowel sounds. No guarding, no rebound. No masses appreciated. MUSCULOSKELETAL: Normal extremities with adequate strength and normal range of motion, no pitting or edema. No clubbing or cyanosis. NEUROLOGICAL: Patient is alert and oriented x 3. SKIN: Warm, Dry, normal turgor, no rashes or lesions noted. Course Vital Signs 08/05/21 08/05/21 08/05/21 07:18 08:26 10:14 Temperature 98.8 F 98.7 F Pulse Rate 111 H 76 Respiratory 20 20 20 Rate Blood Pressure 123/82 121/79 O2 Sat by Pulse 95 96 Oximetry Medical Decision Making - Medical Decision Making Patient is a 21-year-old male here with cough and cold-like symptoms over the past 2 days. She's also been having some mild nausea and vomiting. Vital signs are stable, rapid: Is negative, chest x-ray showed no acute findings. Discussed with patient this is most likely viral, rest of family also has similar symptoms. Recommended [id number] medications for her cough. She takes Zofran for any nausea. She is agreeable to this plan of care and she is stable for discharge. She can follow up with her primary care. Case discussed with Dr. Claire. - Lab Data Lab Results 08/05/21 Range/Units 07:52 Coronavirus (PCR) Not Detected (Not Detectd) Disposition Clinical Impression: Viral respiratory illness Disposition: HOME SELF-CARE Condition: Stable Instructions (If sedation given, give patient instructions): Upper Respiratory Infection (ED) Additional Instructions: Please return to the Emergency Department if symptoms worsen or any other concerns. Take Zofran for any additional nausea or vomiting. May take OTC meds for cough. Please follow-up with your primary care. Is patient prescribed a controlled substance at d/c from ED?: No Referrals: Jose Cunningham MD [Primary Care Provider] - 1-2 days Time of Disposition: 10:07
--- NOTE | 2021-08-05 09:50 | XR ---
EXAMINATION TYPE: XR chest 1V portable DATE OF EXAM: 08/05/2021 COMPARISON: 03/26/2021 HISTORY: 21 years Female. STUDY INDICATION GIVEN: cough . TECHNIQUE: AP chest radiograph IMPRESSION: No focal airspace disease, pneumothorax or pleural effusion. The cardiomediastinal silhouette is normal in appearance. No acute osseous abnormality seen. Mild S-shaped scoliosis similar in appearance to prior study.
[2021-08-05] MEDS ORDERED: ONDANSETRON 4 MG ODT STARTER PACK 2 TAB BTL PO STA (10:06)
[2021-08-05 10:15] VITALS: BP 121/79; PULSE 76; TEMP 98.7
== END 2021-08-05 10:14 | disposition home or self-care (01) ==
LOC: EC 07:12
DX: B34.9 Viral infection, unspecified (principal); Z20.822 Contact with and (suspected) exposure to COVID-19; Z87.891 Personal history of nicotine dependence; Z91.018 Allergy to other foods
CPT/HCPCS: 87635; 71045; 99285; S0119

== ENCOUNTER 2022-02-03 16:28 | Emergency (ER) | payer OTHER ==
[2022-02-03 17:38] VITALS: BP 146/87; PULSE 100; RESP 18; TEMP 98.4
[2022-02-03 18:04] LABS: Appearance,Urine Clear (Clear); Bacteria,Urine Rare /hpf; Bilirubin,Urine Negative (Negative); Blood,Urine Negative (Negative); Color,Urine Yellow; Glucose,Urine (UA) Negative (Negative); Ketones,Urine Negative (Negative); Leukocyte Esterase,Urine Moderate (Negative); Mucus,Urine Few /hpf; Nitrite,Urine Negative (Negative); Protein,Urine Trace (Negative); RBC,Urine 2 /hpf (0-5); Specific Gravity,Urine 1.021 (1.001-1.035); Squamous Epithelial Cell,Urine 9 /hpf (0-4); Urobilinogen,Urine <2.0 mg/dL (<2.0); WBC,Urine 18 /hpf (0-5)
--- NOTE | 2022-02-03 23:06 | ED ---
Abdominal Pain HPI - General Chief Complaint: Abdominal Pain Stated Complaint: 6wks preg/Cramping Time Seen by Provider: 02/03/22 19:37 Source: patient, RN notes reviewed Mode of arrival: ambulatory Limitations: no limitations - History of Present Illness Initial Comments: This is a 21-year-old 6 week female who presents to the emergency department for lower abdominal cramping. The patient was placed in the hallway, however she ended up leaving prior to being evaluated. - Related Data Home Medications Medication Instructions Recorded Confirmed Acetaminophen [Tylenol] 1,000 mg PO Q4-6H PRN 11/12/19 11/12/19 Fluticasone Nasal [place] [Flonase 2 spr EA NOSTRIL DAILY PRN 11/12/19 11/12/19 Nasal [place]] Previous Rx's Medication Instructions Recorded Ibuprofen [Motrin] 600 mg PO Q8HR PRN #30 tab 11/12/19 Oseltamivir [Tamiflu] 75 mg PO Q12HR #10 cap 11/12/19 Nitrofurantoin Monohyd/M-Cryst 100 mg PO Q12HR #14 cap 02/17/21 [Macrobid] Ondansetron [Zofran ODT] 4 mg PO Q8HR PRN #10 tab 02/17/21 guaiFENesin-DM 600/30MG [Mucinex 1 each PO Q12HR #10 tab.er.12h 02/17/21 Dm] Chlorhexidine Gluconate [Peridex] 15 ml PO BID #1 bottle 03/01/21 Clindamycin HCl 300 mg PO Q6HR #40 cap 03/01/21 Allergies Allergy/AdvReac Type Severity Reaction Status Date / Time cinnamon Allergy Anaphylaxis Verified 02/03/22 17:38 Review of Systems ROS Statement: Those systems with pertinent positive or pertinent negative responses have been documented in the HPI. ROS Other: All systems not noted in ROS Statement are negative. Past Medical History Past Medical History: No Reported History Additional Past Medical History / Comment(s): blood clot in right arm History of Any Multi-Drug Resistant Organisms: None Reported Past Surgical History: Adenoidectomy, Tonsillectomy Additional Past Surgical History / Comment(s): Plastic surgery repair to upper lip after dog bite Past Anesthesia/Blood Transfusion Reactions: No Reported Reaction Past Psychological History: Anxiety Smoking Status: Former smoker Past Alcohol Use History: None Reported Past Drug Use History: Marijuana - Past Family History Father History Unknown: Yes Additional Family Medical History / Comment(s): Heart disease of unknown origin. at 42 years old Mother Family Medical History: Diabetes Mellitus General Exam - General Exam Comments Initial Comments: Physical examination based on overall appearance, observation, and interaction of the patient in triage. She was not able to be fully evaluated as she left prior to treatment and examination. Limitations: no limitations General appearance: alert, in no apparent distress Head exam: Present: atraumatic, normocephalic, normal inspection Neurological exam: Present: alert, oriented X3, CN II-XII intact Psychiatric exam: Present: normal affect, normal mood Skin exam: Present: warm, dry, intact, normal color. Absent: rash Course Vital Signs 02/03/22 17:35 Temperature 98.4 F Pulse Rate 100 Respiratory 18 Rate Blood Pressure 146/87 O2 Sat by Pulse 98 Oximetry Medical Decision Making - Medical Decision Making This is a 21-year-old female who presents to the emergency department for lower abdominal cramping and diarrhea. Patient is 6 weeks . Orders were placed in triage for blood work, an ultrasound, and urinalysis. Patient provided a urine sample and a urinalysis was conducted. Lab work was not collected and ultrasound was unable to be performed because the patient ended up leaving prior to full evaluation. - Lab Data Lab Results 02/03/22 02/03/22 Range/Units 17:42 17:42 Urine Color Yellow Urine Appearance Clear (Clear) Urine pH 6.0 (5.0-8.0) Ur Specific [place] 1.021 (1.001-1.035) Urine Protein Trace H (Negative) Urine Glucose (UA) Negative (Negative) Urine Ketones Negative (Negative) Urine Blood Negative (Negative) Urine Nitrite Negative (Negative) Urine Bilirubin Negative (Negative) Urine Urobilinogen <2.0 (<2.0) mg/dL Ur Leukocyte Esterase Moderate H (Negative) Urine RBC 2 (0-5) /hpf Urine WBC 18 H (0-5) /hpf Ur Squamous Epith Cells 9 H (0-4) /hpf Urine Bacteria Rare H (None) /hpf Urine Mucus Few H (None) /hpf Urine HCG, Qual Detected (Not Detectd) Disposition Clinical Impression: Abdominal pain in Disposition: Left W/O Being Seen by Phys Referrals: Jose Cunningham MD [Primary Care Provider] - 1-2 days
== END 2022-02-03 20:59 | disposition left against medical advice (07) ==
LOC: EC 16:28
DX: O26.93 Pregnancy related conditions, unspecified, third trimester (principal); R10.30 Lower abdominal pain, unspecified; Z53.29 Procedure and treatment not carried out because of patient's decision for other reasons; Z87.891 Personal history of nicotine dependence; Z91.018 Allergy to other foods; Z3A.01 Less than 8 weeks gestation of pregnancy
CPT/HCPCS: 81001; 81025; 87086; 99283

== ENCOUNTER 2022-02-18 05:09 | Emergency (ER) | payer OTHER ==
[2022-02-18 05:28] VITALS: TEMP 98
[2022-02-18] MEDS ORDERED: PYRIDOXINE 100 MG/ML 1 ML VIAL IVP STA (05:45)
[2022-02-18] MEDS ORDERED: ONDANSETRON 4 MG/2 ML VIAL IVP STA (05:45)
[2022-02-18] MEDS ORDERED: diphenhydrAMINE 50 MG/ML 1 ML VIAL IVP STA (05:45)
[2022-02-18] MEDS ORDERED: PANTOPRAZOLE 40 MG/10 ML VIAL IVP STA (05:45)
[2022-02-18] MEDS ORDERED: SODIUM CHLORIDE 0.9% 500 ML 500 ML IV STA (05:45)
[2022-02-18] MEDS ORDERED: SODIUM CHLORIDE 0.9% 1,000 ML IV STA ×2 (05:45)
[2022-02-18] MEDS ORDERED: METOCLOPRAMIDE 5 MG/ML 2 ML VIAL IVP STA (05:45)
--- NOTE | 2022-02-18 05:45 | ED ---
Nausea/Vomiting/Diarrhea HPI - General Source: patient, RN notes reviewed, old records reviewed Mode of arrival: ambulatory - History of Present Illness MD complaint: nausea, vomiting -: minutes(s) Description of Vomiting: food contents, watery Associated Abdominal Pain: Yes Location: diffuse, LUQ Radiation: none Severity: moderate Severity scale (1-10): 5 Quality: aching Consistency: intermittent Improves with: vomiting Worsens with: eating Context: other () Associated Symptoms: loss of appetite, nausea/vomiting, weakness <Patrick Hutchins - Last Filed: 02/18/22 06:39> <Patrick Tong - Last Filed: 02/18/22 07:51> - General Chief complaint: Nausea/Vomiting/Diarrhea Stated complaint: Nausea, Vomiting, 8 Weeks Preg. Time Seen by Provider: 02/18/22 05:33 - History of Present Illness Initial comments: This is a 21-year-old female. This patient presents today for nausea vomiting and about 8-9 weeks. Unsure she has not had formal ultrasound at this time. Patient states she was recently started on Zofran and outpatient basis with no help and vomiting. She denies any significant or known weight loss but states that her appetite is not there and her nausea vomiting appears to be getting worse. She can't tolerate oral intake blister the time. No fevers she occasionally gets left upper quadrant abdominal pain no right upper quadrant abdominal pain no history of abdominal surgery this is patient's third . No prior pregnancies had any issues of nausea vomiting (Patrick Hutchins) - Related Data Home Medications Medication Instructions Recorded Confirmed Acetaminophen [Tylenol] 1,000 mg PO Q4-6H PRN 11/12/19 11/12/19 Fluticasone Nasal [place] [Flonase 2 spr EA NOSTRIL DAILY PRN 11/12/19 11/12/19 Nasal [place]] Previous Rx's Medication Instructions Recorded Ibuprofen [Motrin] 600 mg PO Q8HR PRN #30 tab 11/12/19 Oseltamivir [Tamiflu] 75 mg PO Q12HR #10 cap 11/12/19 Nitrofurantoin Monohyd/M-Cryst 100 mg PO Q12HR #14 cap 02/17/21 [Macrobid] Ondansetron [Zofran ODT] 4 mg PO Q8HR PRN #10 tab 02/17/21 guaiFENesin-DM 600/30MG [Mucinex 1 each PO Q12HR #10 tab.er.12h 02/17/21 Dm] Chlorhexidine Gluconate [Peridex] 15 ml PO BID #1 bottle 03/01/21 Clindamycin HCl 300 mg PO Q6HR #40 cap 03/01/21 Metoclopramide [Reglan] 10 mg PO Q6H #10 tab 02/18/22 Allergies Allergy/AdvReac Type Severity Reaction Status Date / Time cinnamon Allergy Anaphylaxis Verified 02/18/22 05:27 Review of Systems ROS Other: All systems not noted in ROS Statement are negative. <Patrick Hutchins - Last Filed: 02/18/22 06:39> ROS Other: All systems not noted in ROS Statement are negative. <Patrick Tong - Last Filed: 02/18/22 07:51> ROS Statement: Those systems with pertinent positive or pertinent negative responses have been documented in the HPI. Past Medical History Past Medical History: No Reported History Additional Past Medical History / Comment(s): blood clot in right arm History of Any Multi-Drug Resistant Organisms: None Reported Past Surgical History: Adenoidectomy, Tonsillectomy Additional Past Surgical History / Comment(s): Plastic surgery repair to upper lip after dog bite Past Anesthesia/Blood Transfusion Reactions: No Reported Reaction Past Psychological History: Anxiety Smoking Status: Former smoker Past Alcohol Use History: None Reported Past Drug Use History: Marijuana - Past Family History Father History Unknown: Yes Additional Family Medical History / Comment(s): Heart disease of unknown origin. at 42 years old Mother Family Medical History: Diabetes Mellitus <Patrick Hutchins - Last Filed: 02/18/22 06:39> General Exam General appearance: alert, in no apparent distress, anxious Head exam: Present: atraumatic, normocephalic, normal inspection Eye exam: Present: normal appearance, PERRL, EOMI. Absent: scleral icterus, conjunctival injection, periorbital swelling ENT exam: Present: normal exam, mucous membranes dry, mucous membranes moist Neck exam: Present: normal inspection. Absent: tenderness, meningismus, lymphadenopathy Respiratory exam: Present: normal lung sounds bilaterally. Absent: respiratory distress, wheezes, rales, rhonchi, stridor Cardiovascular Exam: Present: regular rate, normal rhythm, normal heart sounds. Absent: systolic murmur, diastolic murmur, rubs, gallop, clicks GI/Abdominal exam: Present: soft, normal bowel sounds. Absent: distended, tenderness, guarding, rebound, rigid Extremities exam: Present: normal inspection, full ROM, normal capillary refill. Absent: tenderness, pedal edema, joint swelling, calf tenderness Back exam: Present: normal inspection Neurological exam: Present: alert, oriented X3, CN II-XII intact Psychiatric exam: Present: normal affect, normal mood Skin exam: Present: warm, dry, intact, normal color. Absent: rash <Patrick Hutchins - Last Filed: 02/18/22 06:39> Course <Patrick Hutchins - Last Filed: 02/18/22 06:39> Vital Signs 02/18/22 05:25 Temperature 98 F Pulse Rate 74 Respiratory 19 Rate Blood Pressure 133/85 O2 Sat by Pulse 98 Oximetry - Reevaluation(s) Reevaluation #1: 02/18/22 05:52 Medical record is reviewed (Patrick Hutchins) Medical Decision Making - Lab Data Result diagrams: 02/18/22 06:30 02/18/22 06:30 <Patrick Tong - Last Filed: 02/18/22 07:51> - Medical Decision Making Ultrasound showed a viable intrauterine with a heart rate of 158. I went back into the room to reevaluate the patient she stated she felt much better and felt comfortable going home. (Patrick Tong) - Lab Data Lab Results 02/18/22 02/18/22 02/18/22 Range/Units 06:20 06:30 06:30 WBC 18.3 H (3.8-10.6) k/uL RBC 5.04 (3.80-5.40) m/uL Hgb 14.7 (11.4-16.0) gm/dL Hct 45.0 (34.0-46.0) % MCV 89.2 (80.0-100.0) fL MCH 29.1 (25.0-35.0) pg MCHC 32.6 (31.0-37.0) g/dL RDW 13.1 (11.5-15.5) % Plt Count 346 (150-450) k/uL MPV 8.4 Neutrophils % 79 % Lymphocytes % 16 % Monocytes % 3 % Eosinophils % 0 % Basophils % 0 % Neutrophils # 14.4 H (1.3-7.7) k/uL Lymphocytes # 3.0 (1.0-4.8) k/uL Monocytes # 0.6 (0-1.0) k/uL Eosinophils # 0.1 (0-0.7) k/uL Basophils # 0.0 (0-0.2) k/uL APTT (22.0-30.0) sec Sodium 139 (137-145) mmol/L Potassium 3.8 (3.5-5.1) mmol/L Chloride 107 (98-107) mmol/L Carbon Dioxide 19 L (22-30) mmol/L Anion Gap 13 mmol/L BUN 3 L (7-17) mg/dL Creatinine 0.51 L (0.52-1.04) mg/dL Est GFR (CKD-EPI)AfAm >90 (>60 ml/min/1.73 sqM) Est GFR (CKD-EPI)NonAf >90 (>60 ml/min/1.73 sqM) Glucose 95 (74-99) mg/dL Plasma Lactic Acid Yuri (0.7-2.0) mmol/L Calcium 9.9 (8.4-10.2) mg/dL Phosphorus 2.7 (2.5-4.5) mg/dL Magnesium 2.1 (1.6-2.3) mg/dL Total Bilirubin 0.4 (0.2-1.3) mg/dL AST 18 (14-36) U/L ALT 16 (4-34) U/L Alkaline Phosphatase 80 (38-126) U/L Total Protein 7.5 (6.3-8.2) g/dL Albumin 4.4 (3.5-5.0) g/dL Lipase 60 (23-300) U/L Urine Color Yellow Urine Appearance Turbid H (Clear) Urine pH 8.0 (5.0-8.0) Ur Specific [place] 1.016 (1.001-1.035) Urine Protein Trace H (Negative) Urine Glucose (UA) Negative (Negative) Urine Ketones 2+ H (Negative) Urine Blood Negative (Negative) Urine Nitrite Negative (Negative) Urine Bilirubin Negative (Negative) Urine Urobilinogen <2.0 (<2.0) mg/dL Ur Leukocyte Esterase Large H (Negative) Urine RBC 1 (0-5) /hpf Urine WBC 6 H (0-5) /hpf Ur Squamous Epith Cells 46 H (0-4) /hpf Amorphous Sediment Rare H (None) /hpf Urine Bacteria Occasional H (None) /hpf Urine Mucus Few H (None) /hpf 02/18/22 02/18/22 Range/Units 06:30 06:30 WBC (3.8-10.6) k/uL RBC (3.80-5.40) m/uL Hgb (11.4-16.0) gm/dL Hct (34.0-46.0) % MCV (80.0-100.0) fL MCH (25.0-35.0) pg MCHC (31.0-37.0) g/dL RDW (11.5-15.5) % Plt Count (150-450) k/uL MPV Neutrophils % % Lymphocytes % % Monocytes % % Eosinophils % % Basophils % % Neutrophils # (1.3-7.7) k/uL Lymphocytes # (1.0-4.8) k/uL Monocytes # (0-1.0) k/uL Eosinophils # (0-0.7) k/uL Basophils # (0-0.2) k/uL APTT 23.5 (22.0-30.0) sec Sodium (137-145) mmol/L Potassium (3.5-5.1) mmol/L Chloride (98-107) mmol/L Carbon Dioxide (22-30) mmol/L Anion Gap mmol/L BUN (7-17) mg/dL Creatinine (0.52-1.04) mg/dL Est GFR (CKD-EPI)AfAm (>60 ml/min/1.73 sqM) Est GFR (CKD-EPI)NonAf (>60 ml/min/1.73 sqM) Glucose (74-99) mg/dL Plasma Lactic Acid Yuri 1.5 (0.7-2.0) mmol/L Calcium (8.4-10.2) mg/dL Phosphorus (2.5-4.5) mg/dL Magnesium (1.6-2.3) mg/dL Total Bilirubin (0.2-1.3) mg/dL AST (14-36) U/L ALT (4-34) U/L Alkaline Phosphatase (38-126) U/L Total Protein (6.3-8.2) g/dL Albumin (3.5-5.0) g/dL Lipase (23-300) U/L Urine Color Urine Appearance (Clear) Urine pH (5.0-8.0) Ur Specific [place] (1.001-1.035) Urine Protein (Negative) Urine Glucose (UA) (Negative) Urine Ketones (Negative) Urine Blood (Negative) Urine Nitrite (Negative) Urine Bilirubin (Negative) Urine Urobilinogen (<2.0) mg/dL Ur Leukocyte Esterase (Negative) Urine RBC (0-5) /hpf Urine WBC (0-5) /hpf Ur Squamous Epith Cells (0-4) /hpf Amorphous Sediment (None) /hpf Urine Bacteria (None) /hpf Urine Mucus (None) /hpf Disposition <Patrick Hutchins - Last Filed: 02/18/22 06:39> Is patient prescribed a controlled substance at d/c from ED?: No Time of Disposition: 07:51 <Patrick Tong - Last Filed: 02/18/22 07:51> Clinical Impression: Hyperemesis gravidarum Disposition: HOME SELF-CARE Condition: Good Instructions (If sedation given, give patient instructions): Acute Nausea and Vomiting (ED) Prescriptions: Metoclopramide [Reglan] 10 mg PO Q6H #10 tab Referrals: Jose Cunningham MD [Primary Care Provider] - 1-2 days
[2022-02-18 06:50] LABS: Basophils % (A) 0 %; Eosinophils # (A) 0.1 k/uL (0-0.7); Eosinophils % (A) 0 %; HGB 14.7 gm/dL (11.4-16.0); Lymphocytes % (A) 16 %; MCH 29.1 pg (25.0-35.0); MCHC 32.6 g/dL (31.0-37.0); MCV 89.2 fL (80.0-100.0); Mean Platelet Volume 8.4; Monocytes # (A) 0.6 k/uL (0-1.0); Monocytes % (A) 3 %; Neutrophils # (A) 14.4 k/uL (1.3-7.7); Neutrophils % (A) 79 %; Platelet Count 346 k/uL (150-450); RBC 5.04 m/uL (3.80-5.40); RDW 13.1 % (11.5-15.5); WBC 18.3 k/uL (3.8-10.6)
[2022-02-18 06:55] LABS: Amorphous Sediment,Urine Rare /hpf; Appearance,Urine Turbid (Clear); Bacteria,Urine Occasional /hpf; Bilirubin,Urine Negative (Negative); Blood,Urine Negative (Negative); Color,Urine Yellow; Glucose,Urine (UA) Negative (Negative); Ketones,Urine 2+ (Negative); Leukocyte Esterase,Urine Large (Negative); Mucus,Urine Few /hpf; Nitrite,Urine Negative (Negative); Protein,Urine Trace (Negative); RBC,Urine 1 /hpf (0-5); Specific Gravity,Urine 1.016 (1.001-1.035); Squamous Epithelial Cell,Urine 46 /hpf (0-4); Urobilinogen,Urine <2.0 mg/dL (<2.0); WBC,Urine 6 /hpf (0-5)
[2022-02-18 07:05] LABS: ALT 16 U/L (4-34); AST 18 U/L (14-36); African American GFR (CKD) >90 (>60 ml/min/1.73 sqM); Albumin 4.4 g/dL (3.5-5.0); Alkaline Phosphatase 80 U/L (38-126); Anion Gap 13 mmol/L; Blood Urea Nitrogen 3 mg/dL (7-17); Calcium 9.9 mg/dL (8.4-10.2); Carbon Dioxide 19 mmol/L (22-30); Chloride 107 mmol/L (98-107); Glucose 95 mg/dL (74-99); Lipase 60 U/L (23-300); Magnesium 2.1 mg/dL (1.6-2.3); Non-African American GFR(CKD) >90 (>60 ml/min/1.73 sqM); Phosphorus 2.7 mg/dL (2.5-4.5); Potassium 3.8 mmol/L (3.5-5.1); Sodium 139 mmol/L (137-145); Total Bilirubin 0.4 mg/dL (0.2-1.3); Total Protein 7.5 g/dL (6.3-8.2)
--- NOTE | 2022-02-18 07:21 | US ---
EXAMINATION TYPE: Transabdominal DATE OF EXAM: 02/18/2022 7:07 AM COMPARISON: NONE CLINICAL HISTORY: ob. N&V EXAM PERFORMED: Transabdominal (TA) EXAM MEASUREMENTS: GESTATIONAL AGE / DATING Physician Established: Not yet established Dates by LMP: (8 weeks/0 days) EDC: 09/30/2022 Dates by First Scan: No previous this is first scan Dates by Current Scan for: (7 weeks/3 days) EDC: 10/04/2022 MATERNAL ANATOMY Uterus: 11.5 x 6.6 x 6.8 cm Right Ovary: 3.1 x 2.1 x 2.8 cm Left Ovary: 2.1 x 1.7 x 1.9 cm Post CDS / Adnexa: wnl Presence of free fluid: No Presence of corpus luteal cyst: Right ovary= 1.8 x 1.4 x 2.0 cm Presence of subchorionic bleed: No GESTATION / SURVEY CRL: 1.3 cm (7 weeks/3 days) MSD: wnl Yolk Sac (normal less than 6mm): 4mm Heart Rate: 158 bpm Rhythm: Normal IUP: Viable IUP Date of LMP: 12/24/2021 Beta HcG (if available): Not available at this time Viable IUP, No abnormality visualized at this time IMPRESSION: Single viable intrauterine . Right ovarian corpus luteal cyst.
[2022-02-18 08:35] VITALS: BP 128/79; PULSE 76; RESP 18
== END 2022-02-18 08:33 | disposition home or self-care (01) ==
LOC: EC 05:09
DX: O21.0 Mild hyperemesis gravidarum (principal); Z3A.01 Less than 8 weeks gestation of pregnancy; Z91.018 Allergy to other foods; Z87.891 Personal history of nicotine dependence
CPT/HCPCS: 36415; 80053; 83605; 83690; 83735; 84100; 85025; 85730; 81001; 76801; 99284; 96374; 96375; 96361; J1200; J3415; J2765; J2405; C9113

== ENCOUNTER 2022-05-09 06:56 | Emergency (ER) | payer OTHER ==
[2022-05-09] MEDS ORDERED: SODIUM CHLORIDE 0.9% 2,000 ML IV STA (07:20)
[2022-05-09] MEDS ORDERED: METOCLOPRAMIDE 5 MG/ML 2 ML VIAL IVP STA (07:20)
[2022-05-09] MEDS ORDERED: diphenhydrAMINE 50 MG/ML 1 ML VIAL IVP STA (07:21)
--- NOTE | 2022-05-09 07:25 | ED ---
General Adult HPI - General Chief complaint: Nausea/Vomiting/Diarrhea Stated complaint: 19 wks , vomiting Time Seen by Provider: 05/09/22 06:58 Source: patient, RN notes reviewed Mode of arrival: ambulatory Limitations: no limitations - History of Present Illness Initial comments: 42-year-old female presents emergency Department chief complaint of nausea vomiting. Patient states she is A1 currently [address] Rivera is a diagnosed with hyperemesis gravid DM. Patient states she is on multiple medications states that she is not going down 24 hours felt that she noticed some blood in her emesis. She complains of some upper abdominal discomfort. No lower abdominal pain denies any vaginal bleeding vaginal discharge she states she still feels movement. - Related Data Home Medications Medication Instructions Recorded Confirmed Acetaminophen [Tylenol] 1,000 mg PO Q4-6H PRN 11/12/19 11/12/19 Fluticasone Nasal [place] [Flonase 2 spr EA NOSTRIL DAILY PRN 11/12/19 11/12/19 Nasal [place]] Previous Rx's Medication Instructions Recorded Ibuprofen [Motrin] 600 mg PO Q8HR PRN #30 tab 11/12/19 Oseltamivir [Tamiflu] 75 mg PO Q12HR #10 cap 11/12/19 Nitrofurantoin Monohyd/M-Cryst 100 mg PO Q12HR #14 cap 02/17/21 [Macrobid] Ondansetron [Zofran ODT] 4 mg PO Q8HR PRN #10 tab 02/17/21 guaiFENesin-DM 600/30MG [Mucinex 1 each PO Q12HR #10 tab.er.12h 02/17/21 Dm] Chlorhexidine Gluconate [Peridex] 15 ml PO BID #1 bottle 03/01/21 clindamycin HCL [Clindamycin HCl] 300 mg PO Q6HR #40 cap 03/01/21 Metoclopramide [Reglan] 10 mg PO Q6H #10 tab 02/18/22 Allergies Allergy/AdvReac Type Severity Reaction Status Date / Time cinnamon Allergy Anaphylaxis Verified 02/18/22 05:27 Review of Systems ROS Statement: Those systems with pertinent positive or pertinent negative responses have been documented in the HPI. ROS Other: All systems not noted in ROS Statement are negative. Past Medical History Past Medical History: No Reported History Additional Past Medical History / Comment(s): blood clot in right arm History of Any Multi-Drug Resistant Organisms: None Reported Past Surgical History: Adenoidectomy, Tonsillectomy Additional Past Surgical History / Comment(s): Plastic surgery repair to upper lip after dog bite Past Anesthesia/Blood Transfusion Reactions: No Reported Reaction Past Psychological History: Anxiety Smoking Status: Former smoker Past Alcohol Use History: None Reported Past Drug Use History: Marijuana - Past Family History Father History Unknown: Yes Additional Family Medical History / Comment(s): Heart disease of unknown origin. at 42 years old Mother Family Medical History: Diabetes Mellitus General Exam Limitations: no limitations General appearance: alert, in no apparent distress Head exam: Present: atraumatic, normocephalic, normal inspection Eye exam: Present: normal appearance, PERRL, EOMI. Absent: scleral icterus, conjunctival injection, periorbital swelling ENT exam: Present: normal exam, normal oropharynx, mucous membranes moist Neck exam: Present: normal inspection, full ROM. Absent: tenderness, meningismus, lymphadenopathy Respiratory exam: Present: normal lung sounds bilaterally. Absent: respiratory distress, wheezes, rales, rhonchi, stridor Cardiovascular Exam: Present: regular rate, normal rhythm, normal heart sounds. Absent: systolic murmur, diastolic murmur, rubs, gallop, clicks GI/Abdominal exam: Present: soft, tenderness, normal bowel sounds. Absent: distended, guarding, rebound, rigid Neurological exam: Present: alert Skin exam: Present: warm, dry, intact, normal color. Absent: rash Course Vital Signs 05/09/22 05/09/22 05/09/22 07:00 07:24 08:37 Temperature 98.4 F 96.6 F L 98.9 F Pulse Rate 100 80 68 Respiratory 20 16 16 Rate Blood Pressure 120/76 124/65 130/74 O2 Sat by Pulse 98 98 100 Oximetry Medical Decision Making - Medical Decision Making 22 of female presented from for nausea vomiting . Patient has a history of hyperemesis gravidarum. Patient was given 2 L fluid tolerating oral intake feels greatly improved we discharged stable condition return parameters were discussed. - Lab Data Result diagrams: 05/09/22 07:47 05/09/22 07:47 Lab Results 09/01/22 09/01/22 09/01/22 Range/Units 07:47 07:47 07:47 WBC 14.8 H (3.8-10.6) k/uL RBC 4.33 (3.80-5.40) m/uL Hgb 13.5 (11.4-16.0) gm/dL Hct 38.7 (34.0-46.0) % MCV 89.4 (80.0-100.0) fL MCH 31.2 (25.0-35.0) pg MCHC 34.9 (31.0-37.0) g/dL RDW 14.4 (11.5-15.5) % Plt Count 349 (150-450) k/uL MPV 8.7 Neutrophils % 81 % Lymphocytes % 14 % Monocytes % 3 % Eosinophils % 0 % Basophils % 0 % Neutrophils # 12.0 H (1.3-7.7) k/uL Lymphocytes # 2.1 (1.0-4.8) k/uL Monocytes # 0.4 (0-1.0) k/uL Eosinophils # 0.0 (0-0.7) k/uL Basophils # 0.0 (0-0.2) k/uL Sodium 138 (137-145) mmol/L Potassium 3.5 (3.5-5.1) mmol/L Chloride 106 (98-107) mmol/L Carbon Dioxide 20 L (22-30) mmol/L Anion Gap 12 mmol/L BUN <2 L (7-17) mg/dL Creatinine 0.44 L (0.52-1.04) mg/dL Est GFR (CKD-EPI)AfAm >90 (>60 ml/min/1.73 sqM) Est GFR (CKD-EPI)NonAf >90 (>60 ml/min/1.73 sqM) Glucose 94 (74-99) mg/dL Calcium 9.2 (8.4-10.2) mg/dL Total Bilirubin 0.2 (0.2-1.3) mg/dL AST 17 (14-36) U/L ALT 12 (4-34) U/L Alkaline Phosphatase 95 (38-126) U/L Total Protein 7.0 (6.3-8.2) g/dL Albumin 3.9 (3.5-5.0) g/dL Urine Color Yellow Urine Appearance Cloudy H (Clear) Urine pH 8.0 (5.0-8.0) Ur Specific [place] 1.015 (1.001-1.035) Urine Protein Trace H (Negative) Urine Glucose (UA) Negative (Negative) Urine Ketones 4+ H (Negative) Urine Blood Negative (Negative) Urine Nitrite Negative (Negative) Urine Bilirubin Negative (Negative) Urine Urobilinogen <2.0 (<2.0) mg/dL Ur Leukocyte Esterase Large H (Negative) Urine RBC 1 (0-5) /hpf Urine WBC 5 (0-5) /hpf Ur Squamous Epith Cells 11 H (0-4) /hpf Urine Bacteria Rare H (None) /hpf Urine Mucus Few H (None) /hpf Disposition Clinical Impression: Hyperemesis gravidarum, Dehydration Disposition: HOME SELF-CARE Condition: Stable Instructions (If sedation given, give patient instructions): Hyperemesis Gravi darum (ED) Additional Instructions: Please return to the Emergency Department if symptoms worsen or any other concerns. Is patient prescribed a controlled substance at d/c from ED?: No Referrals: Jose Cunningham MD [Primary Care Provider] - 1-2 days Time of Disposition: 09:37
[2022-05-09 07:29] VITALS: RESP 16
[2022-05-09 08:06] LABS: Basophils % (A) 0 %; Eosinophils % (A) 0 %; HCT 38.7 % (34.0-46.0); HGB 13.5 gm/dL (11.4-16.0); Lymphocytes # (A) 2.1 k/uL (1.0-4.8); Lymphocytes % (A) 14 %; MCH 31.2 pg (25.0-35.0); MCHC 34.9 g/dL (31.0-37.0); MCV 89.4 fL (80.0-100.0); Mean Platelet Volume 8.7; Monocytes # (A) 0.4 k/uL (0-1.0); Monocytes % (A) 3 %; Neutrophils % (A) 81 %; Platelet Count 349 k/uL (150-450); RBC 4.33 m/uL (3.80-5.40); RDW 14.4 % (11.5-15.5); WBC 14.8 k/uL (3.8-10.6)
[2022-05-09 08:16] LABS: ALT 12 U/L (4-34); AST 17 U/L (14-36); African American GFR (CKD) >90 (>60 ml/min/1.73 sqM); Albumin 3.9 g/dL (3.5-5.0); Alkaline Phosphatase 95 U/L (38-126); Anion Gap 12 mmol/L; Blood Urea Nitrogen <2 mg/dL (7-17); Calcium 9.2 mg/dL (8.4-10.2); Carbon Dioxide 20 mmol/L (22-30); Chloride 106 mmol/L (98-107); Glucose 94 mg/dL (74-99); Non-African American GFR(CKD) >90 (>60 ml/min/1.73 sqM); Potassium 3.5 mmol/L (3.5-5.1); Sodium 138 mmol/L (137-145); Total Bilirubin 0.2 mg/dL (0.2-1.3)
[2022-05-09 08:40] VITALS: PULSE 68
[2022-05-09 09:17] LABS: Appearance,Urine Cloudy (Clear); Bacteria,Urine Rare /hpf; Bilirubin,Urine Negative (Negative); Blood,Urine Negative (Negative); Color,Urine Yellow; Glucose,Urine (UA) Negative (Negative); Ketones,Urine 4+ (Negative); Leukocyte Esterase,Urine Large (Negative); Mucus,Urine Few /hpf; Nitrite,Urine Negative (Negative); Protein,Urine Trace (Negative); RBC,Urine 1 /hpf (0-5); Specific Gravity,Urine 1.015 (1.001-1.035); Squamous Epithelial Cell,Urine 11 /hpf (0-4); Urobilinogen,Urine <2.0 mg/dL (<2.0); WBC,Urine 5 /hpf (0-5)
[2022-05-09 10:03] VITALS: BP 120/82; TEMP 98.6
== END 2022-05-09 09:55 | disposition home or self-care (01) ==
LOC: EC 06:56
DX: O21.0 Mild hyperemesis gravidarum (principal); Z87.891 Personal history of nicotine dependence; Z91.09 Other allergy status, other than to drugs and biological substances; Z3A.19 19 weeks gestation of pregnancy; E86.0 Dehydration
CPT/HCPCS: 36415; 80053; 85025; 81001; 99284; 96374; 96375; 96361; J1200; J2765

== ENCOUNTER 2022-07-15 07:35 | Emergency (ER) | payer OTHER ==
[2022-07-15 07:42] VITALS: TEMP 97.7
[2022-07-15] MEDS ORDERED: METOCLOPRAMIDE 5 MG/ML 2 ML VIAL IVP STA (08:00)
[2022-07-15] MEDS ORDERED: PANTOPRAZOLE 40 MG/10 ML VIAL IVP STA (08:01)
[2022-07-15] MEDS ORDERED: DEXTROSE 5%-0.9% NACL 1,000 ML IV SCH (08:30)
--- NOTE | 2022-07-15 08:43 | ED ---
General Adult HPI - General Chief complaint: Nausea/Vomiting/Diarrhea Stated complaint: Dehydrated Time Seen by Provider: 07/15/22 07:50 Source: patient, RN notes reviewed, old records reviewed Mode of arrival: ambulatory Limitations: no limitations - History of Present Illness Initial comments: Patient is a 22-year-old female currently 29 weeks who presents emergency Department complaining of nausea and vomiting. Patient does have a history of hyperemesis gravidarum. Has been attempting to treat it at home with her normal Reglan without much effect. Does have some epigastric and right upper quadrant abdominal discomfort associated with the nausea and nonbilious, the emesis. Also has been having bloody diarrhea. Symptoms of been ongoing for a few days. Denies any upper history symptoms. Denies any fevers or chills. Denies any vaginal discharge or bleeding. Denies any abdominal pain. is uncomplicated so far. No urinary complaints. Presents for further evaluation of this time. - Related Data Home Medications Medication Instructions Recorded Confirmed Acetaminophen [Tylenol] 1,000 mg PO Q4-6H PRN 11/12/19 11/12/19 Fluticasone Nasal [place] [Flonase 2 spr EA NOSTRIL DAILY PRN 11/12/19 11/12/19 Nasal [place]] Previous Rx's Medication Instructions Recorded Ibuprofen [Motrin] 600 mg PO Q8HR PRN #30 tab 11/12/19 Oseltamivir [Tamiflu] 75 mg PO Q12HR #10 cap 11/12/19 Nitrofurantoin Monohyd/M-Cryst 100 mg PO Q12HR #14 cap 02/17/21 [Macrobid] Ondansetron [Zofran ODT] 4 mg PO Q8HR PRN #10 tab 02/17/21 guaiFENesin-DM 600/30MG [Mucinex 1 each PO Q12HR #10 tab.er.12h 02/17/21 Dm] Chlorhexidine Gluconate [Peridex] 15 ml PO BID #1 bottle 03/01/21 clindamycin HCL [Clindamycin HCl] 300 mg PO Q6HR #40 cap 03/01/21 Metoclopramide [Reglan] 10 mg PO Q6H #10 tab 02/18/22 Allergies Allergy/AdvReac Type Severity Reaction Status Date / Time cinnamon Allergy Anaphylaxis Verified 07/15/22 07:40 Review of Systems ROS Statement: Those systems with pertinent positive or pertinent negative responses have been documented in the HPI. Review of Systems: CONST: Denies fever EYES: Denies blurry vision ENT: Denies nasal congestion C/V: Denies Chest pain RESP: Denies shortness of breath GI: Endorses abdominal pain, nausea, vomiting : Denies dysuria SKIN: Denies rash. MSK: Denies joint pain. NEURO: Denies headache ROS Other: All systems not noted in ROS Statement are negative. Past Medical History Past Medical History: No Reported History Additional Past Medical History / Comment(s): blood clot in right arm History of Any Multi-Drug Resistant Organisms: None Reported Past Surgical History: Adenoidectomy, Tonsillectomy Additional Past Surgical History / Comment(s): Plastic surgery repair to upper lip after dog bite Past Anesthesia/Blood Transfusion Reactions: No Reported Reaction Past Psychological History: Anxiety Smoking Status: Former smoker Past Alcohol Use History: None Reported Past Drug Use History: Marijuana - Past Family History Father History Unknown: Yes Additional Family Medical History / Comment(s): Heart disease of unknown origin. at 42 years old Mother Family Medical History: Diabetes Mellitus General Exam - General Exam Comments Initial Comments: General: Appears in no acute distress. HEAD: Normal with no signs of head trauma. EYES: EOMI ENT: Mildly dry mucous membranes. RESPIRATORY: Clear breath sounds bilaterally. No wheezes, rales, or rhonchi. C/V: Regular rate and rhythm. S1 and S2 auscultated, no edema, peripheral pulses 2+ and intact throughout ABD: Abdomen soft, nondistended. Tender to palpation minimally in the epigastric and right upper quadrant. No guarding. No peritoneal signs. No rebound tenderness. EXT: Normal range of motion, no obvious deformity SKIN: No rashes or lesions observed on exposed skin. NEURO: Alert and oriented 4. Limitations: no limitations Course Vital Signs 07/15/22 07/15/22 07/15/22 07:40 09:17 10:41 Temperature 97.7 F Pulse Rate 80 82 82 Respiratory 16 18 18 Rate Blood Pressure 134/92 122/68 124/81 O2 Sat by Pulse 98 99 96 Oximetry Medical Decision Making - Medical Decision Making Based on the patient's presentation and physical exam, she does appear to be presenting with her typical hyperemesis gravidarum but I cannot rule out other etiology at this time. Recommended we obtain abdominal laboratory studies which she accepted. She will be symptomatically treated with IV antibiotics, Protonix, as well as a bolus of D5 normal saline. She was in agreement with this plan. We will obtain urine studies as well. Recommended a right upper quadrant ultrasound of the gallbladder. Medicines within acceptable limits. Patient was in agreement this plan. Right upper quadrant ultrasound revealed no evidence of cholecystitis or choledocholithiasis. Laboratory studies are remarkable for mild leukocytosis of 11.3 which is likely reactive. LFTs, alk phos was slightly elevated and the patient. This is new. Covid is negative. On reevaluation, symptoms have resolved. I discussed the findings with the patient. Her elevated LFTs in the setting of negative ultrasound as well as r esolved symptoms could be secondary to her chronic nausea and vomiting. We did discuss admission versus discharge I believe is safe to be discharged home with close follow-up with her BONDERIZER OPERATOR. She was in agreement this plan. Strict return precautions were discussed. She already has required at home. She is tolerating oral intake at this time. Symptoms are resolved. I instructed the patient to follow up with their PCP in the next 1-3 days. I explained that the patient should return to the emergency department if they experience any worsening symptoms. Strict return precautions were discussed with the patient. The patient expressed understanding of these instructions. I ans wered all questions that the patient had. The patient was discharged home in good condition with their prescriptions and follow up information. - Lab Data Result diagrams: 07/15/22 08:23 07/15/22 08:23 Lab Results 07/15/22 07/15/22 07/15/22 Range/Units 08:23 08:23 08:23 WBC 11.3 H (3.8-10.6) k/uL RBC 4.23 (3.80-5.40) m/uL Hgb 13.1 (11.4-16.0) gm/dL Hct 35.9 (34.0-46.0) % MCV 84.9 (80.0-100.0) fL MCH 31.0 (25.0-35.0) pg MCHC 36.6 (31.0-37.0) g/dL RDW 14.4 (11.5-15.5) % Plt Count 256 (150-450) k/uL MPV 10.3 Neutrophils % 75 % Lymphocytes % 19 % Monocytes % 4 % Eosinophils % 0 % Basophils % 0 % Neutrophils # 8.5 H (1.3-7.7) k/uL Lymphocytes # 2.1 (1.0-4.8) k/uL Monocytes # 0.4 (0-1.0) k/uL Eosinophils # 0.0 (0-0.7) k/uL Basophils # 0.0 (0-0.2) k/uL Poikilocytosis Slight PT 10.0 (9.0-12.0) sec INR 0.9 (<1.2) APTT 22.1 (22.0-30.0) sec Sodium 138 (137-145) mmol/L Potassium 3.4 L (3.5-5.1) mmol/L Chloride 108 H (98-107) mmol/L Carbon Dioxide 19 L (22-30) mmol/L Anion Gap 11 mmol/L BUN 4 L (7-17) mg/dL Creatinine 0.46 L (0.52-1.04) mg/dL Est GFR (CKD-EPI)AfAm >90 (>60 ml/min/1.73 sqM) Est GFR (CKD-EPI)NonAf >90 (>60 ml/min/1.73 sqM) Glucose 90 (74-99) mg/dL Calcium 9.4 (8.4-10.2) mg/dL Total Bilirubin 0.5 (0.2-1.3) mg/dL AST 172 H (14-36) U/L ALT 250 H (4-34) U/L Alkaline Phosphatase 136 H (38-126) U/L Total Protein 6.8 (6.3-8.2) g/dL Albumin 3.8 (3.5-5.0) g/dL Amylase 61 (30-110) U/L Lipase 78 (23-300) U/L Coronavirus (PCR) (Not Detectd) 07/15/22 Range/Units 08:52 WBC (3.8-10.6) k/uL RBC (3.80-5.40) m/uL Hgb (11.4-16.0) gm/dL Hct (34.0-46.0) % MCV (80.0-100.0) fL MCH (25.0-35.0) pg MCHC (31.0-37.0) g/dL RDW (11.5-15.5) % Plt Count (150-450) k/uL MPV Neutrophils % % Lymphocytes % % Monocytes % % Eosinophils % % Basophils % % Neutrophils # (1.3-7.7) k/uL Lymphocytes # (1.0-4.8) k/uL Monocytes # (0-1.0) k/uL Eosinophils # (0-0.7) k/uL Basophils # (0-0.2) k/uL Poikilocytosis PT (9.0-12.0) sec INR (<1.2) APTT (22.0-30.0) sec Sodium (137-145) mmol/L Potassium (3.5-5.1) mmol/L Chloride (98-107) mmol/L Carbon Dioxide (22-30) mmol/L Anion Gap mmol/L BUN (7-17) mg/dL Creatinine (0.52-1.04) mg/dL Est GFR (CKD-EPI)AfAm (>60 ml/min/1.73 sqM) Est GFR (CKD-EPI)NonAf (>60 ml/min/1.73 sqM) Glucose (74-99) mg/dL Calcium (8.4-10.2) mg/dL Total Bilirubin (0.2-1.3) mg/dL AST (14-36) U/L ALT (4-34) U/L Alkaline Phosphatase (38-126) U/L Total Protein (6.3-8.2) g/dL Albumin (3.5-5.0) g/dL Amylase (30-110) U/L Lipase (23-300) U/L Coronavirus (PCR) Not Detected (Not Detectd) Disposition Clinical Impression: Hyperemesis gravidarum Disposition: HOME SELF-CARE Condition: Good Instructions (If sedation given, give patient instructions): Acute Nausea and Vomiting (ED) Is patient prescribed a controlled substance at d/c from ED?: No Referrals: Jose Cunningham MD [Primary Care Provider] - 1-2 days Time of Disposition: 10:00
[2022-07-15 08:44] LABS: Basophils % (A) 0 %; Eosinophils % (A) 0 %; HCT 35.9 % (34.0-46.0); HGB 13.1 gm/dL (11.4-16.0); Lymphocytes # (A) 2.1 k/uL (1.0-4.8); Lymphocytes % (A) 19 %; MCHC 36.6 g/dL (31.0-37.0); MCV 84.9 fL (80.0-100.0); Mean Platelet Volume 10.3; Monocytes # (A) 0.4 k/uL (0-1.0); Monocytes % (A) 4 %; Neutrophils # (A) 8.5 k/uL (1.3-7.7); Neutrophils % (A) 75 %; Platelet Count 256 k/uL (150-450); Poikilocytosis Slight; RBC 4.23 m/uL (3.80-5.40); RDW 14.4 % (11.5-15.5); WBC 11.3 k/uL (3.8-10.6)
[2022-07-15 08:56] LABS: ALT 250 U/L (4-34); AST 172 U/L (14-36); African American GFR (CKD) >90 (>60 ml/min/1.73 sqM); Albumin 3.8 g/dL (3.5-5.0); Alkaline Phosphatase 136 U/L (38-126); Amylase 61 U/L (30-110); Anion Gap 11 mmol/L; Blood Urea Nitrogen 4 mg/dL (7-17); Calcium 9.4 mg/dL (8.4-10.2); Carbon Dioxide 19 mmol/L (22-30); Chloride 108 mmol/L (98-107); Glucose 90 mg/dL (74-99); Lipase 78 U/L (23-300); Non-African American GFR(CKD) >90 (>60 ml/min/1.73 sqM); Potassium 3.4 mmol/L (3.5-5.1); Sodium 138 mmol/L (137-145); Total Bilirubin 0.5 mg/dL (0.2-1.3); Total Protein 6.8 g/dL (6.3-8.2)
[2022-07-15 09:07] LABS: INR 0.9 (<1.2); Partial Thromboplastin Time 22.1 sec (22.0-30.0)
[2022-07-15 09:18] VITALS: PULSE 82; RESP 18
--- NOTE | 2022-07-15 09:52 | US ---
EXAMINATION TYPE: US gallbladder DATE OF EXAM: 07/15/2022 COMPARISON: NONE CLINICAL HISTORY: n/v, ruq pain. eval for gallbladder pathology. TECHNIQUE: Multiple sonographic images of the right upper quadrant are obtained. FINDINGS: EXAM MEASUREMENTS: Liver Length: 14.7 cm Gallbladder Wall: .3 cm CBD: .4 cm Right Kidney: 11.9 x 4.1 x 5.8 cm DRYWALL HANGER FRAMER NOTES: Pancreas: Obscured by bowel gas Liver: Increased attenuation suggesting mild or early fatty infiltration Gallbladder: No stones seen Evidence for sonographic Justin's sign: No CBD: portions visualized appear wnl. Right Kidney: No hydronephrosis or masses seen IMPRESSION: No shadowing mobile gallstones or ultrasonic evidence for acute cholecystitis
[2022-07-15 10:42] VITALS: BP 124/81
== END 2022-07-15 10:49 | disposition home or self-care (01) ==
LOC: EC 07:35
DX: O21.0 Mild hyperemesis gravidarum (principal); F41.9 Anxiety disorder, unspecified; Z87.891 Personal history of nicotine dependence; F12.90 Cannabis use, unspecified, uncomplicated; Z91.018 Allergy to other foods; Z79.899 Other long term (current) drug therapy; Z20.822 Contact with and (suspected) exposure to COVID-19; Z3A.29 29 weeks gestation of pregnancy
CPT/HCPCS: 80053; 82150; 83690; 85025; 85610; 85730; 87635; 76705; 99284; 96374; 96375; 96361; J2765; C9113; 36415

== ENCOUNTER 2022-08-20 14:35 | Outpatient (CLI) | payer OTHER ==
[2022-08-20 15:27] LABS: Amphetamine Screen,Urine Not Detected (NotDetected); Benzodiazepines Screen,Urine Not Detected (NotDetected); Cocaine Screen,Urine Not Detected (NotDetected); Opiate Screen,Urine Not Detected (NotDetected); Phencyclidine Screen,Urine Not Detected (NotDetected); Urn Cannabinoid Scrn Detected (NotDetected)
[2022-08-20 15:28] LABS: Barbiturate Screen,Urine Not Detected (NotDetected); Methadone Screen, Urine Not Detected (NotDetected); Oxycodone Screen, Urine Not Detected (NotDetected); Tricyclic Antidepressant,Urine Not Detected (NotDetected)
--- NOTE | 2022-08-20 19:00 | P.MSEPDOC ---
Presenting Problems - Arrival Data Date of Arrival on Unit: 08/20/22 Time of Arrival on Unit: 14:35 Mode of Transport: Portable I agree with the RN Medical Screening Exam: Yes Case reviewed; plan agreed upon as documented in EMR&OBIX.: Yes Diagnosis: CIRCUMVALLATE PLACENTA, THIRD TRIMESTER (This patient is a 22-year-old 4 para 2 female estimated gestational age 34-2/7 weeks who presented to the office today for a biophysical profile for circumvallate placenta. This patient's had care per Dr. Rivera. Patient was found to have a biophysical in the office of 4 out of 8. Patient had breathing but no movement or tone. Amniotic fluid index was normal. On questioning the patient she did report using THC approximately 2 hours prior to coming to the office. Apparently she's been taking this on a regular basis. I advised her to be evaluated in labor and delivery with prolonged monitoring and a repeat biophysical. It was my impression at this biophysical was most likely due to recent THC use. Patient is monitored for 4 hours and has a reactive NST without decelerations. Repeat biophysical profile done 4 hours later is 8 out of 8. At this time there is no evidence of maternal or compromise. I did have a long discussion with the patient, her partner, and her mother about the risks of THC use during . I explained to them that recent studies suggest there could be long-term development. Is currently recommended not to use during . At this point the patient is going to be discharged home. She'll follow-up with Dr. Rivera tomorrow as scheduled.)
[2022-08-20 19:04] VITALS: BP 121/60; PULSE 104; RESP 17; TEMP 98.2
--- NOTE | 2022-08-20 19:15 | US ---
EXAMINATION TYPE: US OB BPP wo non-stress DATE OF EXAM: 08/20/2022 COMPARISON: NONE CLINICAL HISTORY: Repeat BPP, first BPP 4 out of 8. Patient states she got a 4/8 at her OB today. TECHNIQUE: Transabdominal (TA). Scoring by the nickel plant operator during real-time assessment. FINDINGS: BPP PARAMETERS: PRESENTATION: Vertex LIE: Transverse with head maternal L?? HEART RATE: 143 bpm RHYTHM: Normal BETTY: 16.1 DIAPHRAGM IMAGED: Yes BPP SCORIN. Breathin (1 episode of breathing of 30 second duration in 30 minutes of scanning time) 2. Movement: 2 (at least 3 discrete body movements in 30 minutes) 3. Tone: 2 (1 episode of active flexion/extension of limb) 4. BETTY: 2 (BETTY index > 5cm) PERSONNEL INTERVIEWER NOTES: Baby was very active during exam IMPRESSION: TOTAL SCORE: 8 / 8
== END 2022-08-20 18:54 | disposition home or self-care (01) ==
LOC: FBPOP 14:35
PROVIDERS: ATTEND Obstetrics & Gynecology
DX: O26.893 Other specified pregnancy related conditions, third trimester (principal); Z3A.34 34 weeks gestation of pregnancy; O43.113 Circumvallate placenta, third trimester; F17.200 Nicotine dependence, unspecified, uncomplicated; Z91.018 Allergy to other foods
CPT/HCPCS: 59025; 80306; 76819; G0463; 99213

== ENCOUNTER 2022-08-23 11:34 | Outpatient (CLI) | payer OTHER ==
[2022-08-23 12:53] VITALS: BP 127/64; PULSE 94; RESP 16; TEMP 98.1
--- NOTE | 2022-08-24 09:12 | P.MSEPDOC ---
Presenting Problems - Arrival Data Date of Arrival on Unit: 08/23/22 Time of Arrival on Unit: 11:50 Mode of Transport: Ambulatory - Complaint OB-Reason for Admission/Chief Complaint: NST Medical History - Information : 4 Para: 2 Term: 2 : 0 Abortions: Spontaneous or Elective: 1 Number of Living Children: 2 - Gestational Age Gestational Age by YVONNE (wks/days): 34 Weeks and 4 Days - History Complications: Hx. Substance Abuse, Other Comment: curcmilia placenta, daily thc use. pt states increased fluid. Review of Systems - Review of Systems Constitutional: No problems Breast: No problems ENT: No problems Cardiovascular: No problems Respiratory: No problems Gastrointestinal: No problems Genitourinary: No problems Musculoskeletal: No problems Neurological: No problems Skin: No problems Vital Signs - Temperature Temperature: 98.1 F Temperature Source: Temporal Artery Scan - Pulse Radial Pulse Rate: 94 Pulse Assessment Method: Automatic Cuff - Respirations Respiratory Rate: 16 Oxygen Delivery Method: Room Air - Blood Pressure Right Arm Blood Pressure: 127/64 Blood Pressure Mean: 85 Blood Pressure Source: Automatic Cuff Medical Screen Scoring - Uterine Contractions Intensity: Absent - Assessment - Baby A Baseline FHR: 130 Heart Rate - NICHD Category: Category I (Normal) NST: Reactive Physician Notification - Physician Notified Physician Notified Date: 08/23/22 Physician Notified Time: 12:25 Physician: Hui Rivera Order Received: Yes (may return home with instructions to keep appt for next week) Maternal Triage Index - Scheduled/Requesting Priority 5 Scheduled/Requesting Priority 5: Yes Criteria Met for Priority 5: nst from office. 34 weeks. Disposition - Disposition OB Disposition: Written follow up instructions reviewed Discharge Date: 08/23/22 Discharge Time: 12:25 I agree with the RN Medical Screening Exam: Yes Case reviewed; plan agreed upon as documented in EMR&OBIX.: Yes Diagnosis: SUPERVISION OF OTHER HIGH RISK PREGNANCIES, THIRD TRIMESTER
== END 2022-08-23 12:35 | disposition home or self-care (01) ==
LOC: FBPOP 11:34
PROVIDERS: ATTEND Obstetrics & Gynecology
DX: O09.893 Supervision of other high risk pregnancies, third trimester (principal); Z3A.34 34 weeks gestation of pregnancy; Z91.018 Allergy to other foods; F17.200 Nicotine dependence, unspecified, uncomplicated
CPT/HCPCS: 59025; G0463; 99213

== ENCOUNTER 2022-09-16 07:57 | Outpatient (CLI) | payer OTHER ==
[2022-09-16 10:05] VITALS: BP 133/69; PULSE 81; RESP 16; TEMP 97.7
--- NOTE | 2022-09-17 19:26 | P.MSEPDOC ---
Presenting Problems - Arrival Data Date of Arrival on Unit: 09/16/22 Time of Arrival on Unit: 07:57 Mode of Transport: Ambulatory - Complaint OB-Reason for Admission/Chief Complaint: Other Comment: pt reports abd pain noted right of umbilicus, hx of hyperemesis and circumvallate placenta, reports tightening with contractions but denies pain, cervical exam reveals pt is 4/50/-2 which is what her exam was last week with dr rivera Medical History - Information : 4 Para: 2 Term: 2 : 0 Abortions: Spontaneous or Elective: 1 Number of Living Children: 2 - Gestational Age Gestational Age by YVONNE (wks/days): 38 Weeks and 0 Days - History Complications: Hx. Substance Abuse Comment: thc gummies for nausea Review of Systems - Review of Systems Constitutional: No problems Breast: No problems ENT: No problems Cardiovascular: No problems Respiratory: No problems Gastrointestinal: No problems Genitourinary: No problems Musculoskeletal: No problems Neurological: No problems Skin: No problems Vital Signs - Temperature Temperature: 97.7 F Temperature Source: Temporal Artery Scan - Pulse Right Brachial Pulse Rate: 81 Pulse Assessment Method: Automatic Cuff - Respirations Respiratory Rate: 16 Oxygen Delivery Method: Room Air O2 Sat by Pulse Oximetry: 98 - Blood Pressure Right Arm Blood Pressure: 133/69 Blood Pressure Mean: 90 Blood Pressure Source: Automatic Cuff Medical Screen Scoring - Cervical Exam Dilation (cm): 4 Effacement (%): 50 Station: -2 Membranes: Intact - Uterine Contractions Frequency From (mins): 3 Frequency To (mins): 8 Duration From (seconds): 60 Duration To (seconds): 90 Intensity: Mild Resting: Soft to palpation - Assessment - Baby A Baseline FHR: 125 Heart Rate - NICHD Category: Category I (Normal) NST: Reactive Physician Notification - Physician Notified Physician Notified Date: 09/16/22 Physician Notified Time: 09:00 Physician: Hui Rivera Order Received: Yes (dc home) Maternal Triage Index - Non-Urgent/Priority 4 Non-Urgent Priority 4: Yes Criteria Met for Priority 4: reviewed assessment with cee knutson to dc home Disposition - Disposition OB Disposition: Discharge to home, Written follow up instructions reviewed Discharge Date: 09/16/22 Discharge Time: 09:12 I agree with the RN Medical Screening Exam: Yes Case reviewed; plan agreed upon as documented in EMR&OBIX.: Yes Diagnosis: RELATED CONDITIONS, UNSPECIFIED, THIRD TRIMESTER
== END 2022-09-16 09:12 | disposition home or self-care (01) ==
LOC: FBPOP 07:57
PROVIDERS: ATTEND Obstetrics & Gynecology
DX: O26.93 Pregnancy related conditions, unspecified, third trimester (principal); Z3A.38 38 weeks gestation of pregnancy; F17.200 Nicotine dependence, unspecified, uncomplicated; Z91.018 Allergy to other foods
CPT/HCPCS: 59025; G0463; 99213

== ENCOUNTER 2022-09-23 13:52 | Outpatient (CLI) | payer OTHER ==
[2022-09-23 16:05] VITALS: BP 105/58; PULSE 99; RESP 16; TEMP 97.4
--- NOTE | 2022-09-23 20:19 | P.MSEPDOC ---
Presenting Problems - Arrival Data Date of Arrival on Unit: 09/23/22 Time of Arrival on Unit: 13:52 Mode of Transport: Ambulatory - Complaint OB-Reason for Admission/Chief Complaint: NST Comment: sent from office for NST for circuvallate placenta Medical History - Information : 4 Para: 2 Term: 2 : 0 Abortions: Spontaneous or Elective: 1 Number of Living Children: 2 - Gestational Age Gestational Age by YVONNE (wks/days): 39 Weeks and 0 Days - History Complications: Other Review of Systems - Review of Systems Constitutional: No problems Breast: No problems ENT: No problems Cardiovascular: No problems Respiratory: No problems Gastrointestinal: No problems Genitourinary: No problems Musculoskeletal: No problems Neurological: No problems Skin: No problems Vital Signs - Temperature Temperature: 97.4 F Temperature Source: Temporal Artery Scan - Pulse Brachial Pulse Rate: 99 Pulse Assessment Method: Automatic Cuff - Respirations Respiratory Rate: 16 Oxygen Delivery Method: Room Air O2 Sat by Pulse Oximetry: 98 - Blood Pressure Right Arm Blood Pressure: 105/58 Blood Pressure Mean: 73 Blood Pressure Source: Automatic Cuff Medical Screen Scoring - Uterine Contractions Frequency From (mins): 4 Frequency To (mins): 8 Intensity: Mild - Assessment - Baby A Baseline FHR: 125 Heart Rate - NICHD Category: Category I (Normal) NST: Reactive Physician Notification - Physician Notified Physician Notified Date: 09/23/22 Physician Notified Time: 14:15 Physician: Hui Rivera Order Received: Yes (may discharge if NST reactive) Maternal Triage Index - Maternal Triage Index Presenting for scheduled procedure w/no complaint: Yes - Scheduled/Requesting Priority 5 Scheduled/Requesting Priority 5: No Disposition - Disposition OB Disposition: Triage, Discharge to home Discharge Date: 09/23/22 Discharge Time: 14:21 I agree with the RN Medical Screening Exam: Yes Case reviewed; plan agreed upon as documented in EMR&OBIX.: Yes Diagnosis: SUPERVISION OF OTHER HIGH RISK PREGNANCIES, THIRD TRIMESTER
== END 2022-09-23 14:15 ==
LOC: FBPOP 13:52
PROVIDERS: ATTEND Obstetrics & Gynecology
DX: O09.893 Supervision of other high risk pregnancies, third trimester (principal); Z3A.39 39 weeks gestation of pregnancy; Z91.018 Allergy to other foods; F17.200 Nicotine dependence, unspecified, uncomplicated
CPT/HCPCS: 59025

== ENCOUNTER 2022-09-25 05:56 | Inpatient (IN) | payer OTHER ==
--- NOTE | 2022-09-24 12:31 | P.HPOB ---
History of Present Illness H&P Date: 09/24/22 Chief Complaint: Induction of labor, circumvallate placenta This is a 22-year-old female 4 para 2 with an estimated date of confinement of 09/30/2022, estimated gestational age of 39-2/7 weeks, who presents to labor and delivery for induction of labor. Her has been compensated by chronic nausea and vomiting throughout the . She has continued to use THC throughout the even though I have advised her to quit. She was also diagnosed with a circumvallate placenta and has been doing regular surveillance. Her latest ultrasound showed a fetus in the vertex presentation with estimated weight of 8 lbs. 2 oz. or 3674 g and BETTY of 28.48 cm. labs: Group B streptococcus-negative GC/chlamydia/Trichomonas-negative Hepatitis B surface antigen-negative RPR-nonreactive Rubella-immune Blood type-AB+ Antibody screen-negative HIV-nonreactive Hemoglobin-13.6 Random glucose-76 One hour Glucola-was not done due to nausea and vomiting, she did keep a log of sugars for 2 weeks that were all within normal limits. OB history: . History of 2 vaginal deliveries at term, largest baby was 8 lbs. 9 oz. She also has a history of 1 miscarriage. Gynecologic history: No history of STDs. Social history: She is single. She is unemployed. Review of Systems Constitutional: Denies chills, Denies fever Eyes: denies blurred vision, denies pain Ears, nose, mouth and throat: Denies headache, Denies sore throat Cardiovascular: Denies chest pain, Denies shortness of breath Respiratory: Denies cough Gastrointestinal: Reports abdominal pain (contractions), Reports nausea, Reports vomiting Genitourinary: Reports pelvic pain, Reports , Denies dysuria, Denies hematuria Musculoskeletal: Reports low back pain Integumentary: Reports pruritus Neurological: Denies numbness, Denies weakness Past Medical History Additional Past Medical History / Comment(s): History of superficial blood clot in right arm; chronic nausea and vomiting of History of Any Multi-Drug Resistant Organisms: None Reported Past Surgical History: Adenoidectomy, Tonsillectomy Additional Past Surgical History / Comment(s): Plastic surgery repair to upper lip after dog bite Past Anesthesia/Blood Transfusion Reactions: No Reported Reaction Past Psychological History: No Psychological Hx Reported Smoking Status: Never smoker Past Alcohol Use History: Rare Past Drug Use History: Marijuana (Daily) - Past Family History Father History Unknown: Yes Additional Family Medical History / Comment(s): Heart disease of unknown origin. at 42 years old Mother Family Medical History: Diabetes Mellitus Medications and Allergies Home Medications Medication Instructions Recorded Confirmed Type No Known Home Medications 09/23/22 09/23/22 History Allergies Allergy/AdvReac Type Severity Reaction Status Date / Time cinnamon Allergy Anaphylaxis Verified 09/23/22 15:13 Exam Osteopathic Statement: *. No significant issues noted on an osteopathic structural exam other than those noted in the History and Physical/Consult. HEENT: Within normal limits Heart: Regular rate and rhythm Lungs: Clear to auscultation bilaterally Abdomen: Cervix: 4-5 cm/60%/-2 station heart tones: 140s by Doppler Extremities: Negative Homans Assessment and Plan (1) Circumvallate placenta Status: Acute Code(s): O43.119 - CIRCUMVALLATE PLACENTA, UNSPECIFIED TRIMESTER SNOMED Code(s): 6290538 (2) with 39 completed weeks gestation Status: Acute Code(s): Z3A.39 - 39 WEEKS GESTATION OF SNOMED Code (s): 46073198 Plan: Proceed with oxytocin induction of labor. Epidural anesthesia if desired. Expectant management. Will obtain urine drug screen due to chronic history of THC during her . deputy sheriff court services consult.
[2022-09-25] MEDS ORDERED: LIDOCAINE 0.5% (PF) 5 MG/ML (50 ML SDV) SQ PRN (06:22)
[2022-09-25] MEDS ORDERED: TRANEXAMIC ACID IN NACL,ISO-OS 1,000 MG in EMPTY BAG 1 BAG IV PRN (06:22)
[2022-09-25] MEDS ORDERED: METHYLERGONOVINE 0.2 MG/ML 1 ML AMP IM PRN (06:22)
[2022-09-25] MEDS ORDERED: OXYTOCIN 10 UNIT/ML 1 ML VIAL IM PRN (06:22)
[2022-09-25] MEDS ORDERED: CARBOPROST TROMETHAMINE 250 MCG/ML 1 ML AMP IM PRN (06:22)
[2022-09-25] MEDS ORDERED: LIDOCAINE 1% (10MG/ML) FOR IV START INTRADERMA PRN (06:22)
[2022-09-25] MEDS ORDERED: OXYTOCIN 30 UNITS/500 ML NS 30 UNIT in SALINE 1 500ML.BAG IV SCH (06:22)
[2022-09-25] MEDS ORDERED: miSOPROStoL 200 MCG TAB PO PRN (06:22)
[2022-09-25] MEDS ORDERED: TERBUTALINE 1 MG/ML VIAL SQ PRN (06:22)
[2022-09-25 06:31] LABS: Basophils % (A) 0 %; Eosinophils % (A) 0 %; HCT 31.5 % (34.0-46.0); HGB 10.6 gm/dL (11.4-16.0); Lymphocytes # (A) 1.8 k/uL (1.0-4.8); Lymphocytes % (A) 22 %; MCH 27.9 pg (25.0-35.0); MCHC 33.5 g/dL (31.0-37.0); MCV 83.3 fL (80.0-100.0); Mean Platelet Volume 10.4; Monocytes # (A) 0.4 k/uL (0-1.0); Monocytes % (A) 5 %; Neutrophils # (A) 5.8 k/uL (1.3-7.7); Neutrophils % (A) 71 %; Platelet Count 262 k/uL (150-450); Poikilocytosis Slight; RBC 3.78 m/uL (3.80-5.40); RDW 14.5 % (11.5-15.5); WBC 8.2 k/uL (3.8-10.6)
[2022-09-25] MEDS: LACTATED RINGERS 1,000 ML IV SCH ×2 (06:38→11:15)
[2022-09-25] MEDS: OXYTOCIN 30 UNITS/500 ML NS 30 UNIT in SALINE 1 500ML.BAG IV SCH ×2 (06:39→11:15)
[2022-09-25 08:07] LABS: Amphetamine Screen,Urine Not Detected (NotDetected); Barbiturate Screen,Urine Not Detected (NotDetected); Benzodiazepines Screen,Urine Not Detected (NotDetected); Cocaine Screen,Urine Not Detected (NotDetected); Methadone Screen, Urine Not Detected (NotDetected); Opiate Screen,Urine Not Detected (NotDetected); Oxycodone Screen, Urine Not Detected (NotDetected); Phencyclidine Screen,Urine Not Detected (NotDetected); Tricyclic Antidepressant,Urine Not Detected (NotDetected); Urn Cannabinoid Scrn Detected (NotDetected)
[2022-09-25] MEDS ORDERED: MIDAZOLAM 2 MG/2 ML VIAL ONE (09:46)
[2022-09-25] MEDS ORDERED: PROPOFOL 10 MG/ML 20 ML VIAL IV ONE (09:46)
[2022-09-25] MEDS ORDERED: fentaNYL (PF) 50 MCG/ML 2 ML AMP ONE (09:46)
[2022-09-25] MEDS ORDERED: OXYTOCIN 30 UNITS/500 ML NS BAG IV ONE (09:46)
[2022-09-25] MEDS ORDERED: KETOROLAC 15 MG/ML 1 ML VIAL ONE (09:46)
[2022-09-25] MEDS ORDERED: SUCCINYLCHOLINE CHLORIDE 200 MG/10 ML VIAL IV ONE (09:46)
[2022-09-25] MEDS ORDERED: diphenhydrAMINE 50 MG CAP PO PRN (10:28)
[2022-09-25] MEDS ORDERED: ZOLPIDEM 5 MG TAB PO PRN (10:28)
[2022-09-25] MEDS ORDERED: BENZOCAINE/MENTHOL SPRAY 1 GM/SPRAY AEROSOL TOPICAL PRN (10:28)
[2022-09-25] MEDS ORDERED: SIMETHICONE 80 MG CHEWABLE PO PRN (10:28)
[2022-09-25] MEDS ORDERED: METOCLOPRAMIDE 5 MG/ML 2 ML VIAL IVP PRN (10:28)
[2022-09-25] MEDS ORDERED: LANOLIN CREAM 5 GM TUBE TOPICAL PRN (10:28)
[2022-09-25] MEDS ORDERED: HYDROCORTISONE 2.5% RECTAL CREAM 30 GM TUBE RECTAL PRN (10:28)
[2022-09-25] MEDS ORDERED: ONDANSETRON 4 MG/2 ML VIAL IVP PRN (10:28)
[2022-09-25] MEDS ORDERED: NALOXONE 0.4 MG/ML 1 ML VIAL IV PRN (10:28)
[2022-09-25] MEDS ORDERED: diphenhydrAMINE 50 MG/ML 1 ML VIAL IVP PRN ×2 (10:28)
[2022-09-25] MEDS ORDERED: diphenhydrAMINE 25 MG CAP PO PRN (10:28)
--- NOTE | 2022-09-25 10:31 | XR ---
EXAMINATION TYPE: XR abdomen 1V DATE OF EXAM: 09/25/2022 10:26 AM INDICATION: Patient age:Female; 22 years old; Reason for study: NO INITIAL COUNT; COMPARISON: None. TECHNIQUE: One radiographic view of the abdomen was obtained. FINDINGS: No radiopaque foreign body identified. There are skin david over the low abdomen. There i s diastases of the pubic symphysis measuring up to 1.5 cm. The bowel gas pattern is nonspecific witho ut dilated loops of small or large bowel. . The osseous structures are intact. No abnormal calcific ations are present. Fecal material and gas are demonstrated throughout the colon and rectum. IMPRESSION: 1. Skin david without evidence for surgical sponge or equipment. 2. 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
[2022-09-25] MEDS: HYDROmorphone PCA 10 MG/50 ML BAG IV PRN (11:18)
--- NOTE | 2022-09-25 13:27 | P.OP ---
Date of Procedure: 09/25/22 Preoperative Diagnosis: 1. Intrauterine at 39-2/7 weeks. 2. Cord prolapse. Postoperative Diagnosis: Same Procedure(s) Performed: emergent primary low transverse section Anesthesia: JAMES Surgeon: Hui Rivera Photo Booth Operator #1: Liam Mclaughlin Estimated Blood Loss (ml): 800 Pathology: other (Placenta) Condition: stable Disposition: floor Indications for Procedure: This is a 22-year-old female 4 para 2 at 39-2/7 weeks who presented for induction of labor secondary to polyhydramnios and her Belly placenta. She underwent oxytocin induction of labor and did have artificial rupture membranes when she was approximately 5 cm percent and -3 station. Clear fluid was noted at the time. A few hours after rupture of membranes, she began having a deceleration to the 60s that lasted over a minute. Upon examination by nursing staff, she was found to be 6 cm approximately 60% but a loop of cord was palpated next to the head and was noted to be pulsating. The head was elevated by the nurse with a gloved hand and she called for help. I immediately came to the room and heart tones were noted to be in the 130s to 140s with good variability but decelerations during a contraction down to the 60s. At this point I explained to the patient the urgent need to proceed with stat section under general anesthesia. She agreed and consent was signed. I have discussed the risks, benefits, and alternative therapies for the above- mentioned procedure and for both sedation/anesthesia as well as necessary blood products administration, if indicated, as they pertain to this patient. The patient has indicated her understanding and acceptance of the risks and procedures discussed. Operative Findings: A viable male infant is noted in the vertex presentation with scores of 9 at 1 minute and 10 at 5 minutes and weight of 8 lbs. 9 oz. Nuchal cord times one was noted along with cord prolapse. Normal uterus tubes and ovaries are noted. Description of Procedure: The patient is taken to the operating room where she is placed in the dorsal supine position with leftward tilt and nursing continued to elevate the baby's head with a gloved hand. She is prepped and draped in the normal sterile fashion. Gen. anesthesia was then given. A Pfannenstiel skin incision was made with a scalpel. A second knife was used to carry the incision down to the unde rlying layer of fascia. The fascia was nicked in the midline with a scalpel and then extended laterally bilaterally with Best scissors. The anterior lip of the fascia was grasped with 2 Sadie clamps and then dissected off the underlying rectus muscle in the midline with Best scissors. The inferior aspect of the fascial incision was grasped with 2 Sadie clamps and dissected off the underlying rectus muscle and the midline with Best scissors. Next the peritoneum layer was tented up with 2 hemostats and then entered sharply with the scalpel. The incision is extended superiorly and inferiorly with Metzenbaum scissors. Next a DeLee retractor is placed. The vesicouterine peritoneum is entered sharply with Metzenbaum scissors and extended laterally bilaterally with Metzenbaum scissors and then the bladder flap is pushed inferiorly. The lower uterine segment is incised in transverse fashion with the scalpel and then bluntly entered with a hemostat. Clear fluid is noted. The incision was then extended laterally bilaterally with 2 fingers. Next the 's head is delivered through the incision. Nuchal cord 1 was reduced around the infant's head after delivery and the loop of cord that had prolapsed was released. Nurse was allowed to remove her hand from the vaginal area. Nose and mouth are bulb suctioned. The remainder of the infant is easily delivered and placed on m other's abdomen. Cord is clamped and cut. Infant is taken to warmer by nursing staff. Uterine fundus is gently massaged and placenta is delivered manually. Uterus is exteriorized and cleared of all clots and debris. Uterine incision is closed with 0 Vicryl suture in a running locked fashion. A second layer of 0 Vicryl suture is used in a running fashion for hemostasis. Once adequate hemostasis as assured, the vesicouterine peritoneum is reapproximated with 2-0 Vicryl suture in a running fashion. Posterior cul-de-sac is suctioned of all clots and debris. Uterus is returned to the abdomen. Incision is noted to be hemostatic. Peritoneal layer is closed with 0 Vicryl suture in a running fashion. Muscle layer is reapproximated with 0 Vicryl suture in interrupted fashion. Fascia layer is then closed with 0 PDS suture with 2 sutures meeting in the midline and the knots buried in either side and in the midline. The subcutaneous tissue was then closed with 2-0 Vicryl suture. Skin layer was then closed with david. All sponge and needle counts are correct. The patient is taken to recovery room in stable condition.
[2022-09-25] MEDS: ACETAMINOPHEN TAB 500 MG TAB PO SCH ×2 (13:35→19:50)
[2022-09-25] MEDS: ACETAMINOPHEN IV (For NPO) 1,000 MG in EMPTY BAG 1 BAG IVPB SCH ×2 (13:35→19:40)
[2022-09-25] MEDS: IBUPROFEN 600 MG TAB PO SCH ×2 (16:45→23:13)
[2022-09-25] MEDS: KETOROLAC 15 MG/ML 1 ML VIAL IVP SCH ×2 (16:45→23:17)
[2022-09-25] MEDS: SENNOSIDES-DOCUSATE SODIUM 1 EACH TAB PO SCH (19:47)
[2022-09-26] MEDS: ACETAMINOPHEN TAB 500 MG TAB PO SCH ×4 (02:30→22:15)
[2022-09-26] MEDS: LACTATED RINGERS 1,000 ML IV SCH ×5 (02:31→22:41)
[2022-09-26] MEDS: KETOROLAC 15 MG/ML 1 ML VIAL IVP SCH ×3 (05:27→22:15)
[2022-09-26] MEDS: IBUPROFEN 600 MG TAB PO SCH ×3 (05:28→20:36)
[2022-09-26] MEDS: HYDROmorphone PCA 10 MG/50 ML BAG IV PRN (05:55)
[2022-09-26 06:25] LABS: Basophils % (A) 0 %; Eosinophils % (A) 0 %; HCT 26.7 % (34.0-46.0); Lymphocytes # (A) 1.8 k/uL (1.0-4.8); Lymphocytes % (A) 16 %; MCH 28.5 pg (25.0-35.0); MCV 86.4 fL (80.0-100.0); Mean Platelet Volume 10.8; Monocytes # (A) 0.6 k/uL (0-1.0); Monocytes % (A) 5 %; Neutrophils # (A) 9.1 k/uL (1.3-7.7); Neutrophils % (A) 77 %; Platelet Count 194 k/uL (150-450); Poikilocytosis Slight; RBC 3.09 m/uL (3.80-5.40); RDW 15.1 % (11.5-15.5); WBC 11.7 k/uL (3.8-10.6)
[2022-09-26 07:06] LABS: HGB 8.8 gm/dL (11.4-16.0)
--- NOTE | 2022-09-26 08:45 | P.PNOBGPC ---
Subjective - Subjective Principal diagnosis: Status post primary low transverse section postoperative day #1 Interval history: Patient is doing okay. She is complaining of some pain but her CUSTOMS DIRECTOR was not working properly last night. She has ambulated and has urinated several times. Lochia has been decreasing. She is not passing flatus or bowel movement yet. Patient reports: Reports appetite normal, Reports voiding normally, Reports pain poorly controlled, Reports ambulating normally : doing well, nursing well Objective - Vital Signs Latest vital signs: Vital Signs Temp Pulse Resp BP BP Pulse Ox 09/26/22 07:45 97.9 F 87 12 126/74 99 09/26/22 04:00 98 F 83 16 127/73 98 09/25/22 23:32 97.8 F 66 18 103/66 97 09/25/22 19:51 97.8 F 69 16 115/74 100 09/25/22 16:00 98.2 F 72 16 109/57 98 09/25/22 12:42 97.0 F L 68 16 105/58 98 09/25/22 12:12 84 16 104/56 97 09/25/22 11:42 68 16 122/58 100 09/25/22 11:27 76 16 122/57 100 09/25/22 11:12 78 16 118/58 100 09/25/22 10:57 69 16 123/59 100 09/25/22 10:42 97.6 F 85 16 139/71 99 Intake and Output 09/25/22 09/26/22 09/26/22 22:59 06:59 14:59 Output Total 700 300 Balance -700 -300 Output: Urine 700 300 Uretheral (Bryant) 300 Other: Voiding Method Indwelling Catheter - Exam Extremities: Present: normal. Absent: tenderness, edema Abdomen: Present: normal appearance, soft. Absent: distention, tenderness Incision: Present: normal, dry, intact. Absent: erythematous Uterus: Present: normal, firm. Absent: tenderness - Labs Labs: Abnormal Lab Results - Last 24 Hours (Table) 09/26/22 Range/Units 06:02 WBC 11.7 H (3.8-10.6) k/uL RBC 3.09 L (3.80-5.40) m/uL Hgb 8.8 L D (11.4-16.0) gm/dL Hct 26.7 L (34.0-46.0) % Neutrophils # 9.1 H (1.3-7.7) k/uL Assessment and Plan Assessment: Status post primary low transverse section postoperative day #1 (1) Circumvallate placenta Current Visit: No Status: Acute Code(s): O43.119 - CIRCUMVALLATE PLACENTA, UNSPECIFIED TRIMESTER SNOMED Code(s): 7428306 (2) with 39 completed weeks gestation Current Visit: No Status: Acute Code(s): Z3A.39 - 39 WEEKS GESTATION OF SNOMED Code(s): 98813036 Plan: Continue with postoperative and care today. Will advance diet after flatus. Will work on pain control today.
[2022-09-26] MEDS: SENNOSIDES-DOCUSATE SODIUM 1 EACH TAB PO SCH ×2 (09:20→22:15)
[2022-09-26] MEDS ORDERED: ONDANSETRON 4 MG TAB PO PRN (20:14)
[2022-09-27] MEDS: IBUPROFEN 600 MG TAB PO SCH ×3 (02:05→08:22)
[2022-09-27] MEDS: ACETAMINOPHEN TAB 500 MG TAB PO SCH (02:08)
[2022-09-27] MEDS: KETOROLAC 15 MG/ML 1 ML VIAL IVP SCH ×2 (02:08→06:32)
[2022-09-27] MEDS: SENNOSIDES-DOCUSATE SODIUM 1 EACH TAB PO SCH (08:23)
[2022-09-27 09:02] VITALS: BP 137/74; PULSE 93; RESP 14; TEMP 98.4
--- NOTE | 2022-09-27 09:05 | P.DS ---
Providers Date of admission: 09/25/22 05:56 Expected date of discharge: 09/27/22 Attending physician: Hui Rivera Primary care physician: Stated None - Discharge Diagnosis(es) (1) Circumvallate placenta Current Visit: No Status: Acute (2) with 39 completed weeks gestation Current Visit: No Status: Acute Hospital Course: This is a 22-year-old female 4 para 2 at 39-2/7 weeks who presented for induction of labor. She underwent oxytocin induction of labor and artificial rupture membranes with clear fluid noted. She reached a proximally 6 cm and again having decelerations and the heartbeat. She was checked by the nurse and found to have a cord prolapse. Nurse elevated the infant's head and called for emergent section. She underwent a emergency primary low transverse section under general anesthesia on 09/25/2022 and delivered a viable male infant with scores of 9 at 1 minute and 10 at 5 minutes and infant weight of 8 lbs. 9 oz. Her course was relatively uncomplicated. She is passing flatus but no bowel movement yet. Her pain is been fairly well- controlled with ibuprofen. She is breast-feeding. She does notice some shoulder and chest pain with changing position or standing. Is not persistent and seems to be musculoskeletal. Vital signs are stable. Abdomen is soft with positive bowel sounds 4. Incision is clean dry and intact with david in place. Extremities show negative Homans. Impression is status post primary low transverse section postoperative day #2. Plan is to discharge home today. Routine postoperative and instructions are given. David will be removed and Steri-Strips placed prior to discharge. She is given a prescription for ibuprofen. She is advised to follow up in the office in 1 week for a postoperative check and in 6 weeks for check. Procedures: Oxytocin induction of labor Primary low transverse section on 09/25/2022 Patient Condition at Discharge: Stable Plan - Discharge Summary New Discharge Prescriptions: New Ibuprofen [Motrin] 600 mg PO Q6H #60 tab No Action Metoclopramide [Reglan] 5 mg PO Q8HR PRN PRN Reason: Nausea Discharge Medication List Metoclopramide [Reglan] 5 mg PO Q8HR PRN 09/25/22 [History] Ibuprofen [Motrin] 600 mg PO Q6H #60 tab 09/27/22 [Rx] Follow up Appointment(s)/Referral(s): Hui Rivera DO [Doctor of Osteopathic Medicine] - 11/04/22 11:30 am (Post Op Appointment 10-02-2022 at 09:00) Activity/Diet/Wound Care/Special Instructions: Instructions 1. Do not begin any exercise program for 3 weeks. 2. Do not resume sexual relations for 3 weeks or longer if uncomfortable. 3. You may take tub baths or showers at any time. 4. You may use tampons if desired after 3 weeks. 5. Keep the area of episiotomy (stitches) clean and dry. 6. If you are not nursing, wear a good fitting, supportive bra during the day and limit fluid intake for at least 1 week to prevent breast engorgement. 7. Call the office, [phone], within the next week to make appointment for your 6 week checkup if it has not already been made. 8. Report any of the following occurrences to the doctor promptly: a. Heavy, excessive bleeding b. Chills, fever c. Burning or frequency of urination d. Pain or redness and breasts if nursing e. Increasing pain or swelling in episiotomy (stitches). In addition to the above instructions, the following additional should be followed: 1. No heavy lifting or straining (exercising) until after 6 week checkup. 2. Keep abdominal incision clean and dry: You may wear a dressing if more comfortable. 3. Make office appointment for 10 days after going home or as instructed by her doctor. Discharge Disposition: HOME SELF-CARE
== END 2022-09-27 14:30 | disposition home or self-care (01) | DRG 787 ==
LOC: 4FBP 05:56
PROVIDERS: ADMIT Obstetrics & Gynecology; ATTEND Obstetrics & Gynecology
PROC: 4A0HXCZ Measurement of Products of Conception, Cardiac Rate, External Approach (ICD-10-PCS; 2022-09-25)
PROC: 3E033VJ Introduction of Other Hormone into Peripheral Vein, Percutaneous Approach (ICD-10-PCS; 2022-09-25)
PROC: 10907ZC Drainage of Amniotic Fluid, Therapeutic from Products of Conception, Via Natural or Artificial Opening (ICD-10-PCS; 2022-09-25)
PROC: 10D00Z1 Extraction of Products of Conception, Low, Open Approach (ICD-10-PCS; principal; 2022-09-25 06:30)
DX: O76 Abnormality in fetal heart rate and rhythm complicating labor and delivery (principal); O99.324 Drug use complicating childbirth; O69.81X0 Labor and delivery complicated by cord around neck, without compression, not applicable or unspecified; O40.3XX0 Polyhydramnios, third trimester, not applicable or unspecified; O69.0XX0 Labor and delivery complicated by prolapse of cord, not applicable or unspecified; O43.113 Circumvallate placenta, third trimester; O21.0 Mild hyperemesis gravidarum; F12.90 Cannabis use, unspecified, uncomplicated; Z37.0 Single live birth; Z3A.39 39 weeks gestation of pregnancy; Z91.018 Allergy to other foods
CPT/HCPCS: 74018; 80306; 85025; 86850; 86870; 86880; 86900; 86901